=== PATIENT | female | born 1945 | race Caucasian/White ===

== ENCOUNTER 2019-04-27 08:07 | Inpatient (IN) | payer MEDICARE, OTHER ==
[~2019-04-27] VITALS: Ht 160 cm; Wt 67.1 kg
[~2019-04-27 08:07] MED LIST: FLUO40CA8 PO
[2019-04-27] MEDS ORDERED: DILTIAZEM HCL 25 MG IV IV ONE (08:30)
[2019-04-27] MEDS ORDERED: HEPARIN SODIUM, PORCINE 5000 UNITS/1 ML VIAL IV ONE ×2 (08:30→09:00)
[2019-04-27] MEDS ORDERED: HEPARIN INFUSION/D5W 500 ML IV PRN (08:30)
[2019-04-27] MEDS ORDERED: HEPARIN SODIUM, PORCINE 5000 UNITS/1 ML VIAL ONE (08:36)
[2019-04-27] MEDS ORDERED: DILTIAZEM HCL 25 MG IV ONE (08:37)
[2019-04-27 08:39] LABS: BASOPHILS # (AUTO) 0.1 /CMM (0.0-0.2); BASOPHILS % (AUTO) 0.8 % (0.0-2.0); EOSINOPHILS % (AUTO) 0.8 % (0.0-6.0); HEMATOCRIT 37 % (33-45); HEMOGLOBIN 12.3 g/dL (11.5-14.8); LYMPHOCYTES # (AUTO) 1.7 /CMM (0.8-4.8); LYMPHOCYTES % (AUTO) 16.3 % (20.0-44.0); MEAN CORPUSCULAR HGB CONC 33 g/dl (31.0-36.0); MEAN CORPUSCULAR VOLUME 84 fL (82-100); MONOCYTES # (AUTO) 1.1 /CMM (0.1-1.30); MONOCYTES % (AUTO) 10.6 % (2.0-12.0); NEUTROPHILS # (AUTO) 7.4 /CMM (1.8-8.9); NEUTROPHILS % (AUTO) 71.5 % (43.0-81.0); PLATELET COUNT (AUTO) 177 /CMM (150-450); RED BLOOD CELL COUNT(AUTO) 4.43 MIL/uL (4.0-5.2); WHITE BLOOD COUNT (AUTO) 10.4 K/uL (4.3-11.0)
--- NOTE | 2019-04-27 08:43 | NUR ---
CALLED FOR TELE BED
[2019-04-27 08:46] LABS: CALCIUM, SERUM 10.2 mg/dL (8.5-10.1); CARBON DIOXIDE 21 mmol/L (21-32); CHLORIDE 106 mmol/L (98-107); CREATININE 1.2 mg/dL (0.6-1.3); GLUCOSE 127 mg/dL (74-106); POTASSIUM 3.5 mmol/L (3.5-5.1); SODIUM SERUM 141 mmol/L (136-145); UREA NITROGEN, BLOOD 13 mg/dL (7-18)
[2019-04-27 08:58] LABS: B-TYPE NATRIURETIC PEPTIDE 8670 PG/ML (0-125)
[2019-04-27] MEDS ORDERED: BUPR150T10 PO (09:03)
[2019-04-27] MEDS ORDERED: LIPA1CAP21 PO ×2 (09:03)
[2019-04-27] MEDS ORDERED: LOSA50TA39 PO (09:03)
[2019-04-27] MEDS ORDERED: DIPH1TAB28 PO (09:03)
[2019-04-27] MEDS ORDERED: THYR60TA2 PO (09:03)
[2019-04-27] MEDS ORDERED: METO50TA16 PO (09:03)
[2019-04-27] MEDS: HEPARIN INFUSION/D5W 500 ML IV PRN ×2 (09:14→15:54)
--- NOTE | 2019-04-27 09:17 | NUR ---
PT STARTED ON 1250U/HR HEPARIN GTT VIA L HAND IV SITE G 20. CONTINUE TO MONITOR
[2019-04-27] MEDS ORDERED: DILTIAZEM HCL 30 MG TABLET PO ONE (10:00)
--- NOTE | 2019-04-27 10:00 | NUR ---
GOT BED 106
[2019-04-27] MEDS ORDERED: DILTIAZEM HCL 30 MG TABLET ONE (10:01)
--- NOTE | 2019-04-27 11:09 | NUR ---
RN NOTES PT TRANSFERRED TO ROOM 106, VIA ACLS PROTOCAL .
[2019-04-27 11:15] VITALS: BP 120/97
--- NOTE | 2019-04-27 11:59 | NUR ---
PIPE FITTINGS MOLDER ADMITTING NOTES PATIENT ADMITTED TO UNIT AT 1110 VIA [facility]. PT WALKED FROM [facility] TO BED. A/O X4. ABLE TO MAKE NEEDS KNOWN, NO C/O PAIN, SOB OR DISCOMFORTS AT THIS TIME. PT ORIENTED TO UNIT, STAFF AND ROOM. PT WITH DIAGNOSIS OF AFIB WITH RVR. PT ON ROOM AIR, TOLERATING WELL WITH NO ACUTE RESPIRATORY DISTRESS NOTED. V/S TAKEN, AND RECORDED. PHYSICAL ASSESSMENT DONE. PT WITH INTACT SKIN WITH IV ACCESS ON LAC G#20 INTACT AND PATENT, HEPARIN DRIP AT 25ML/HR ( 1250 U/H) INFUSING , NO S/S OF INFILTRATIONS NOTED. PT PLACED ON TELEMONITORING WITH CURRENT READING OF AFIB WITH RVR, HR 90-115., NO C/O CARDIAC DISTRESS VOICED AT THIS TIME. LUNGS CLEAR ON AUSCULTATION BILATERALLY. ABDOMEN SOFT , NON-TENDER AND NON DISTENDED WITH + BOWEL SOUNDS ON FOUR QUADRANTS. SAFETY MEASURES INITIATED. BED PLACED ON LOW LOCKED POSITION WITH SR UP X2. CALL LIGHT PLACED WITHIN EASY REACH OF PT. WILL CONTINUE TO MONITOR PT ACCORDINGLY.
[2019-04-27] MEDS ORDERED: MAG HYDROX/AL HYDROX/SIMETH 30 ML UDC PO PRN (12:30)
[2019-04-27] MEDS ORDERED: ONDANSETRON HCL/PF 4 MG/2 ML VIAL IVP PRN (12:30)
[2019-04-27] MEDS ORDERED: Z GUARD REMEDY 2 OZ OINT TP PRN (12:30)
[2019-04-27] MEDS ORDERED: HYDROCODONE/APAP 5/325MG 1 EACH TABLET PO PRN (12:30)
[2019-04-27] MEDS ORDERED: DIPHENOXYLATE HCL/ATROP SULF 1 UDTAB TABLET PO PRN (13:30)
[2019-04-27] MEDS ORDERED: LIPASE/PROTEASE/AMYLASE 1 EACH CAPSULE.DR PO ONE (13:48)
[2019-04-27] MEDS ORDERED: AMYLASE/LIPASE/PROTEASE 1 CAP.EC PO ONE (13:50)
[2019-04-27 16:00] VITALS: BP 125/89
--- NOTE | 2019-04-27 16:00 | NUR ---
RN NOTES PT NOTED WITH PTT OF 74.9. HEPARIN DRIP DECREASED 2 UNITS/KG PER PROTOCOL. DRIP RATE DECREASED FROM 25 ML/HR TO 22 ML/HR. PTT WILL BE DRAWN IN 6 HOURS. ORDER ALREADY MADE. DR JIMENEZ MADE AWARE AND SIGNED THE PAPER. WILL CONTINUE TO MONITOR.
[2019-04-27] MEDS: ACETAMINOPHEN 325 MG TABLET PO PRN (16:14)
--- NOTE | 2019-04-27 16:16 | NUR ---
RN NOTES PATIENT C/O OF HEADACHE AND REQUESTED TYLENOL. PRN TYLENOL 650MG PO GIVEN ORDERED. WILL CONTINUE TO MONITOR.
[2019-04-27] MEDS: LOSARTAN POTASSIUM 50 MG TABLET PO SCH (17:25)
[2019-04-27] MEDS: LIPASE/PROTEASE/AMYLASE 1 EACH CAPSULE.DR PO SCH (17:26)
[2019-04-27] MEDS: buPROPion SR 150 MG TABLET.ER PO SCH (17:26)
[2019-04-27] MEDS: METOPROLOL TARTRATE 50 MG TABLET PO SCH (17:26)
[2019-04-27] MEDS ORDERED: LIPASE PO SCH (17:30)
[2019-04-27] MEDS ORDERED: AMYLASE PO SCH (17:30)
[2019-04-27] MEDS ORDERED: [UNRECOGNIZED DRUG - OTHER] PO SCH (17:30)
[2019-04-27] MEDS ORDERED: PROTEASE PO SCH (17:30)
[2019-04-27] MEDS ORDERED: AMYLASE/LIPASE/PROTEASE 1 CAP.EC PO SCH (18:00)
--- NOTE | 2019-04-27 18:44 | NUR ---
RN CLOSING NOTES PATIENT RESTING IN BED, A/A/OX4. ON TELE MONITOR, AFIB, HR 100-120. ON NC 2L AT THIS TIME. NO SIGNS OF CARDIAC AND RESPIRATORY DISTRESS OR DISCOMFORT AT THIS TIME. BREATHING EVEN AND UNLABORED. IV ACCESS IN L HAND 20G PATENT, INTACT, AND FLUSHED WELL. NO SIGNS OF REDNESS OR INFILTRATION NOTED. HEPARIN DRIP RUNNING AT 22 ML/HR. PT IS AMBULATORY AND ALL NEEDS MET. BED IN LOW LOCKED POSITION WITH SIDE RAILS UP X2. CALL LIGHT WITHIN THE REACH. WILL ENDORSE TO THE FIRE COORDINATOR NURSE FOR LATHA.
--- NOTE | 2019-04-27 19:00 | NUR ---
TRUCK SERVICE TECHNICIAN OPENING NOTES RECEIVED BEDSIDE REPORT FROM AM RN. PATIENT RESTING IN BED, ALERT, A/OX4. ON TELE MONITOR, AFIB WITH HR 100-120S. ON NC 2L OXYGEN VIA NC, NO SOB NOTED. DENIES ANY PAIN AT THE MOMENT. NO SIGNS OF CARDIAC AND RESPIRATORY DISTRESS OR DISCOMFORT NOTED. BREATHING EVEN AND UNLABORED. IV ACCESS IN L HAND 20G PATENT, INTACT, AND FLUSHING. NO SIGNS OF REDNESS OR INFILTRATION NOTED. HEPARIN DRIP RUNNING AT 22ML/HR, PER REPORT RECENT APTT IS 74.9. PER REPORT PT IS AMBULATORY WITH FWW. SAFETY MEASURES IN PLACE; BED IN LOW AND LOCKED POSITION, SIDE RAILS UP X2, HOB ELEVATED, CALL LIGHT WITHIN THE REACH. WILL CONT TO MONITOR PT CLOSELY.
[2019-04-27 20:00] VITALS: BP 99/70
--- NOTE | 2019-04-27 20:50 | NUR ---
BOARDING HOUSE COOK NOTES PATIENT MOST RECENT APTT AT 2049 IS 57.9. HEPARIN DRIP NO CHANGE PER PROTOCOL. DRIP RATE REMAINS 22 ML/HR. PTT WILL BE DRAWN IN THE NEXT 24 HOURS. WILL ORDER APTT LAB. WILL CONTINUE TO MONITOR PATIENT.
[2019-04-28] VITALS: BP 110/72
[2019-04-28 04:00] VITALS: BP 123/88
[2019-04-28] MEDS: HEPARIN INFUSION/D5W 500 ML IV PRN (06:46)
--- NOTE | 2019-04-28 07:10 | NUR ---
MOBILE DEVICE ENGINEER CLOSING NOTES PATIENT RESTING IN BED, ALERT, A/OX4. ON TELE MONITOR, AFIB WITH HR 100-120S. ON NC 2L OXYGEN VIA NC, NO SOB NOTED. DENIES ANY PAIN AT THE MOMENT. NO SIGNS OF CARDIAC AND RESPIRATORY DISTRESS OR DISCOMFORT NOTED. BREATHING EVEN AND UNLABORED. IV ACCESS IN L HAND 20G PATENT, INTACT, AND FLUSHING. NO SIGNS OF REDNESS OR INFILTRATION NOTED. HEPARIN DRIP RUNNING AT 22ML/HR, STAT APTT ORDERED FOR AM LAB AND TIMED APTT ORDERED AT 2049. SAFETY MEASURES MAINTAINED; BED IN LOW AND LOCKED POSITION, SIDE RAILS UP X2, HOB ELEVATED, CALL LIGHT WITHIN THE REACH. ENDORSED TO AM RN FOR LATHA.
--- NOTE | 2019-04-28 07:30 | NUR ---
RECEIVED REPORT FROM [facility] SHIFT NURSE KILEY WHO ENDORSED THAT DR. JACKMAN AGREED TO CONTINUE HEPARIN DRIP FROM ER UPON ADMISSION TO TELEMETRY. RECEIVED PATIENT ON HEPARIN DRIP 1,100 UNITS/HR INFUSING ON LEFT HAND.
--- NOTE | 2019-04-28 07:35 | NUR ---
ELECTROMECHANICAL INSPECTOR OPENING NOTES RECEIVED REPORT FROM [facility] SHIFT NURSE. PATIENT LAYING IN BED, AWAKE AND ORIENTED X 4. DENIES ANY PAIN OR SOB, RESPIRATIONS ARE EASY AND UNLABORED, NO SIGNS OF RESPIRATORY DISTRESS NOTED. IV SITE ON LEFT HAND G20 INTACT, NO SIGNS OF INFILTRATION NOTED. BED IS IN LOW POSITION, LOCKED, CALL LIGHT WITHIN REACH. DISCUSSED PLAN OF CARE WITH PATIENT.
[2019-04-28 07:46] LABS: BASOPHILS # (AUTO) 0.1 /CMM (0.0-0.2); BASOPHILS % (AUTO) 0.9 % (0.0-2.0); HEMATOCRIT 35 % (33-45); HEMOGLOBIN 11.5 g/dL (11.5-14.8); LYMPHOCYTES # (AUTO) 2.3 /CMM (0.8-4.8); LYMPHOCYTES % (AUTO) 33.6 % (20.0-44.0); MEAN CORPUSCULAR HGB CONC 33 g/dl (31.0-36.0); MEAN CORPUSCULAR VOLUME 83 fL (82-100); MONOCYTES # (AUTO) 0.9 /CMM (0.1-1.30); MONOCYTES % (AUTO) 12.8 % (2.0-12.0); NEUTROPHILS # (AUTO) 3.4 /CMM (1.8-8.9); NEUTROPHILS % (AUTO) 50.7 % (43.0-81.0); PLATELET COUNT (AUTO) 147 /CMM (150-450); RED BLOOD CELL COUNT(AUTO) 4.18 MIL/uL (4.0-5.2); WHITE BLOOD COUNT (AUTO) 6.7 K/uL (4.3-11.0)
[2019-04-28 07:52] LABS: ALANINE AMINOTRANSFERASE 28 U/L (12-78); ALBUMIN 2.9 g/dL (3.4-5.0); ALKALINE PHOSPHATASE 174 U/L (46-116); ASPARTATE AMINOTRANSFERASE 21 U/L (15-37); CALCIUM, SERUM 9.8 mg/dL (8.5-10.1); CARBON DIOXIDE 24 mmol/L (21-32); CHLORIDE 106 mmol/L (98-107); CREATININE 1.1 mg/dL (0.6-1.3); GLUCOSE 96 mg/dL (74-106); MAGNESIUM 1.6 mg/dL (1.8-2.4); POTASSIUM 3.3 mmol/L (3.5-5.1); SODIUM SERUM 140 mmol/L (136-145); TOTAL PROTEIN, SERUM 6.5 g/dL (6.4-8.2); UREA NITROGEN, BLOOD 12 mg/dL (7-18)
[2019-04-28 07:54] LABS: CHOLESTEROL 115 mg/dL (<200); HDL CHOLESTEROL 35 mg/dL (40-60); LDL 71 mg/dL (0-99); TRIGLYCERIDES 85 mg/dL (30-150)
[2019-04-28 08:00] VITALS: BP 119/73
[2019-04-28] MEDS: THYROID 30 MG TABLET PO SCH (08:06)
[2019-04-28] MEDS: LIPASE/PROTEASE/AMYLASE 1 EACH CAPSULE.DR PO SCH ×3 (08:37→18:11)
[2019-04-28] MEDS: buPROPion SR 150 MG TABLET.ER PO SCH ×2 (09:06→17:20)
[2019-04-28] MEDS: LOSARTAN POTASSIUM 50 MG TABLET PO SCH ×2 (09:07→17:20)
[2019-04-28] MEDS: METOPROLOL TARTRATE 50 MG TABLET PO SCH ×2 (09:08→17:20)
[2019-04-28] MEDS ORDERED: POTASSIUM CHLORIDE 20 MEQ TAB.PRT.SR PO SCH (11:00)
[2019-04-28] MEDS: Magnesium 1GM/D5W 100ML PREMIX 100 ML IV SCH ×2 (11:47→19:52)
[2019-04-28 12:00] VITALS: BP 116/86
--- NOTE | 2019-04-28 12:07 | NUR ---
PER DR. CYR'S ORDERS CONTINUED HEPARIN DRIP ORDER 1,100UNITS/HR WITH AMIODARONE DRIP.
[2019-04-28] MEDS ORDERED: AMIODARONE 150 MG in IV D5W 100 ML IV ONE (13:00)
[2019-04-28] MEDS: AMIODARONE 900 MG in IV D5W 500 ML IV PRN (13:45)
[2019-04-28] MEDS ORDERED: IOHEXOL-350 100 ML VIAL IV ONE (15:58)
[2019-04-28 16:00] VITALS: BP_SYST 110; BP_SYST 113; BP_DIAS 82; BP_DIAS 84
--- NOTE | 2019-04-28 16:00 | NUR ---
RN NOTE: PATIENT WAS BROUGHT TO RADIOLOGY DEPARTMENT FOR CT PULMONARY ANGIOGRAM VIA ACLS PROTOCOL. PATIENT TOLERATED THE PROCEDURE.
--- NOTE | 2019-04-28 19:30 | NUR ---
ENDORSED REPORT TO [facility] SHIFT NURSE. PATIENT WAS CONTINUOUSLY RECEIVING LEFT HAND IV SITE HEPARIN DRIP, RIGHT HAND RECEIVING AMIODARONE DRIP. PATIENT ON VP DELIVERY STILL AFIB HEART RATE 90. BED IS IN LOW POSITION, LOCKED, CALL LIGHT WITHIN REACH.
--- NOTE | 2019-04-28 19:45 | NUR ---
RN NOTE RECEIVED PATIENT IN BED, ALERT/ORIENTED X 4, NO PAIN OR DISCOMFORT NOTED, WITH ONGOING AMIODARONE DRIP, CHANGED RATE TO 0.5MG/HR PER HOSPITAL PROTOCOL, CHARGE NURSE IS AWARE, A FIB, HEART RATE IS 104 BEATS/MIN Addendum: 04/29/19 at 0059 by RODGER ACUÑA RN ONGOING HEPARIN DRIPS AT 1100 UNITS/HR, NO S/S OF BLEEDING NOTED
[2019-04-28 20:00] VITALS: BP_SYST 105; BP_SYST 148; BP_DIAS 89; BP_DIAS 97
--- NOTE | 2019-04-28 22:45 | NUR ---
RN NOTE PATIENT COMPLAINED OF SOB UPON WALKING AND CHANGING POSITION, SPO2 98%, NOTIFIED DOCTOR RHINA NEW ORDER OF BREATHING TREATMENT ALBUTEROL IS GIVEN AND CARRIED OUT, ORDER TRANSCRIBED AND READ BACK
[2019-04-28] MEDS: ALBUTEROL FS 2.5 MG/3 ML VIAL.NEB NEB PRN (23:22)
[2019-04-29] VITALS: BP_SYST 111; BP_SYST 97; BP_DIAS 55; BP_DIAS 78
[2019-04-29] MEDS: HEPARIN INFUSION/D5W 500 ML IV PRN ×2 (00:31→06:31)
--- NOTE | 2019-04-29 00:31 | NUR ---
RN NOTE NOTICED THAT ONGOING HEPARIN IV BAG WAS NOT SCANNED, NOTIFIED ELECTRONICS LEAD LACY REGARDING FINDING, PER LACY ELECTRONICS LEAD OK TO SCAN, CHARGE NURSE TOMI IS AWARE
--- NOTE | 2019-04-29 01:18 | NUR ---
RN NOTE NO SHORTNESS OF BREATH AT THIS TIME, PER PATIENT "BREATHING TREATMENT HELPED A LOT"
--- NOTE | 2019-04-29 03:52 | NUR ---
RN NOTE PATIENT COMPLAINED OF HARD TIME BREATHING, PER PATIENT "I FEEL WORRIED", VITAL SIGNS: BP 138/88, SPO2 96%, RESPIRATIONS 18 BREATHS/MIN, HEART RATE 105 BEATS/MIN, TEMPERATURE 97.6F, NOTIFIED DR LANTIGUA, DR LANTIGUA GAVE AN ORDER XANAX 0.25MG PO TIMES 1, CHEST X-RAY IN THE AM, ORDERS WERE TRANSCRIBED AND READ BACK
[2019-04-29 04:00] VITALS: BP 138/88
[2019-04-29] MEDS ORDERED: ALPRAZOLAM 0.25 MG TABLET PO ONE (04:03)
[2019-04-29] MEDS: ALBUTEROL FS 2.5 MG/3 ML VIAL.NEB NEB PRN (04:16)
[2019-04-29 06:38] LABS: CALCIUM, SERUM 10.8 mg/dL (8.5-10.1); CARBON DIOXIDE 20 mmol/L (21-32); CHLORIDE 102 mmol/L (98-107); CREATININE 1.3 mg/dL (0.6-1.3); GLUCOSE 114 mg/dL (74-106); MAGNESIUM 2.6 mg/dL (1.8-2.4); POTASSIUM 3.5 mmol/L (3.5-5.1); SODIUM SERUM 136 mmol/L (136-145); UREA NITROGEN, BLOOD 16 mg/dL (7-18)
--- NOTE | 2019-04-29 06:39 | NUR ---
RN NOTE PATIENT IS STABLE, NO SOB AT THIS TIME, AWAKE, NO RESPIRATORY DISTRESS NOTED, NO PAIN OR DISCOMFORT NOTED, ONGOING HEPARIN DRIPS,NO S/S OF BLEEDING NOTED, ONGOING AMIODARONE DRIPS, AFIB 106, AWAITING APTT RESULTS, WILL ENDORSE TO AM SHIFT TO CONTINUE CARE
[2019-04-29 06:44] LABS: BASOPHILS # (AUTO) 0.1 /CMM (0.0-0.2); BASOPHILS % (AUTO) 0.9 % (0.0-2.0); EOSINOPHILS % (AUTO) 1.3 % (0.0-6.0); HEMATOCRIT 39 % (33-45); HEMOGLOBIN 12.7 g/dL (11.5-14.8); LYMPHOCYTES # (AUTO) 2.5 /CMM (0.8-4.8); LYMPHOCYTES % (AUTO) 26.1 % (20.0-44.0); MEAN CORPUSCULAR HGB CONC 33 g/dl (31.0-36.0); MEAN CORPUSCULAR VOLUME 84 fL (82-100); MONOCYTES # (AUTO) 1.2 /CMM (0.1-1.30); MONOCYTES % (AUTO) 12.3 % (2.0-12.0); NEUTROPHILS # (AUTO) 5.8 /CMM (1.8-8.9); NEUTROPHILS % (AUTO) 59.4 % (43.0-81.0); PLATELET COUNT (AUTO) 163 /CMM (150-450); RED BLOOD CELL COUNT(AUTO) 4.61 MIL/uL (4.0-5.2); WHITE BLOOD COUNT (AUTO) 9.7 K/uL (4.3-11.0)
--- NOTE | 2019-04-29 07:15 | NUR ---
RN INITIAL NOTES PATIENT IN BED, AWAKE AND ALERT. ON NC 3L SATING WELL AT 97%. ON TELE MONITOR, AFIB AT 100s. AWARE. HAS A BEDSIDE COMMODE. HAS LEFT HAND #20 WITH HEPARIN DRIP, PTT 51.1 THIS MORNING. NO CHANGE IN INFUSION. RIGHT AC #20 WITH AMIODARONE RUNNING AT 0.5MG. AND RIGHT HAND #22 SL. BED ON LOWEST POSITION. PATIENT CAN AMBULATE, STEADY GAIT. CALL LIGHT WITHIN REACH. WILL CONT TO MONITOR
[2019-04-29 08:00] VITALS: BP 136/88
--- NOTE | 2019-04-29 08:00 | NUR ---
RN NOTE PATIENT CALLED AND HER RIGHT AC IV WAS DISCONNECTED TO HER ARM. NO BLEEDING NOTED. IV INTACT. CONNECTED AMIODARONE TO HER RIGHT HAND, BUT RIGHT HAND SEEMS TO LOOK SWOLLEN. WHILE AMIO IS RUNNING PATIENT FELT A LITTLE BURNING SENSATION. RIGHT HAND IV DC'D AND INSERTED ANOTHER SITE ON HER RIGHT FOREARM #22. AMIODARONE RUNNING AT THE SAME RATE, 0.5MG AND HEPARIN ON LEFT HAND #20.
[2019-04-29] MEDS: LIPASE/PROTEASE/AMYLASE 1 EACH CAPSULE.DR PO SCH ×3 (08:21→17:16)
[2019-04-29] MEDS: METOPROLOL TARTRATE 50 MG TABLET PO SCH (08:21)
[2019-04-29] MEDS: buPROPion SR 150 MG TABLET.ER PO SCH ×2 (08:21→17:16)
[2019-04-29] MEDS: THYROID 30 MG TABLET PO SCH (08:21)
[2019-04-29] MEDS: LOSARTAN POTASSIUM 50 MG TABLET PO SCH ×2 (08:21→17:16)
[2019-04-29] MEDS ORDERED: LEVALBUTEROL HCL NEB 1.25 MG/0.5 ML VIAL.NEB IH PRN (08:30)
[2019-04-29] MEDS: POTASSIUM CHLORIDE 20 MEQ TAB.PRT.SR PO SCH ×3 (09:48→11:17)
[2019-04-29] MEDS: FUROSEMIDE 40 MG/4 ML VIAL IV SCH ×2 (09:49→12:45)
--- NOTE | 2019-04-29 09:51 | NUR ---
RN NOTE JACKI DUR WAS ADMINISTERED EXACTLY AT 0900. SCANNED MEDICATION, PROBABLY FORGOT TO SAVE EMAR. SCANNED MEDICATION AGAIN AT THIS TIME AND MADE SURE TO SAVE IT.
[2019-04-29] MEDS: methylPREDNISolone SOD SUCC 125 MG/2ML VIAL IV SCH ×2 (10:30→17:15)
[2019-04-29 12:00] VITALS: BP 114/82
--- NOTE | 2019-04-29 12:00 | NUR ---
RN NOTES PATIENT'S AMIO BAG ALMOST FINISHED. PAGED DR CYR FOR NEW ORDERS. PER MD, CONTINUE AMIODARONE DRIP. PATIENT NPO AFTER MIDNIGHT TONIGHT AND TO CONFIRM AM CARDIOVERSION TIME BEFORE 11 AM. CALLED PHARMACY TO GET ANOTHER BAG OF AMIO, CHANGED DIET TO NPO TOMORROW FOR BREAKFAST
[2019-04-29] MEDS: AMIODARONE 900 MG in IV D5W 500 ML IV PRN (13:23)
[2019-04-29] MEDS: LEVALBUTEROL HCL NEB 1.25 MG/0.5 ML VIAL.NEB IH SCH ×2 (15:59→23:33)
[2019-04-29] MEDS: IPRATROPIUM NEB FS 0.5 MG/2.5 ML AMPUL.NEB NEB SCH ×2 (15:59→23:33)
[2019-04-29 16:00] VITALS: BP 126/92
--- NOTE | 2019-04-29 16:43 | NUR ---
NURSING BELLY DANCER CONNOR CONFIRMED TIME FOR CARDIOVERSION WITH ANAESTHESIA IN AM BY 10AM,PATIENT NEED TO BE TRANSFER TO ICU BY 0800 AND WILL GIVE ICU BED IN AM,DR. CYR MADE AWARE.
--- NOTE | 2019-04-29 17:11 | NUR ---
RN NOTES PER MD, PATIENT WILL BE TRANSFERRED TO ICU AT 0800 FOR CARDIOVERSION. ANESTHESIA BY 1000. SEWAGE RETICULATION DRAFTING OFFICER IS AWARE WITH THE ROOM CHANGE TOMORROW WELL CN
--- NOTE | 2019-04-29 18:45 | NUR ---
RN CLOSING NOTES PATIENT IN BED, AWAKE AND ALERT. WATCHING TV. NO COMPLAINS OF ANY PAIN NOR SOB. STILL AFIB ON THE MONITOR, NPO AFTER MIDNIGHT TONIGHT WILL HAVE CARDIOVERSION TOMORROW IN THE ICU. AMBULATORY WITH STEADY GAIT. HAS LEFT HAND #20 WITH HEPARIN RUNNING AND RIGHT FA #22 WITH AMIODARONE RUNNING. BED IN LOWEST POSITION. CALL LIGHT WITHIN REACH. WILL ENDORSE TO NOC SHIFT FOR LATHA
--- NOTE | 2019-04-29 19:00 | NUR ---
RECEIVED PATIENT AWAKE,ALERT,CONVERSES,COHERENT AND APPROPRIATE,NOT IN ANY DISTRESS, DENIES ANY CHEST PAIN. WITH O2 VIA NASAL CANNULA 2L/MIN.ON AMIODARONE DRIP @ 0.5 MG/MIN AND HEPARIN DRIP @ 1100 units/hr. PATIENT AMBULATORY TO THE BATHROOM,TOLERATING WELL.WILL CLOSELY MONITOR FOR ANY S/S OF BLEEDING.COMFORT CARE DONE,NEEDS ATTENDED. PATIENT INSTRUCTED TO BE NPO POST MIDNIGHT ,FOR CARDIOVERSION IN AM.
[2019-04-29 20:00] VITALS: BP 103/71
--- NOTE | 2019-04-29 22:00 | NUR ---
REMAINS STABLE,STILL ON AFIB. WITH RATE 90'S -120'S BUT HIGH RATE NOT SUSTAINING,DENIES ANY PAIN NOR SOB.NEEDS ATTENDED
[2019-04-29] MEDS ORDERED: ACETYLCYSTEINE 10% 3,000 MG/30 ML VIAL PO SCH (23:30)
[2019-04-30] VITALS (7 sets, daily range): BP systolic 101–133; BP diastolic 65–95
--- NOTE | 2019-04-30 | NUR ---
AWAKE,ALERT,STILL ON AFIB BUT RATE CONTROLLED 80'S-90'S HEART RATE. INSTRUCTED PATIENT TO BE NPO STARTING NOW TILL AFTER CARDIOVERSION,PATIENT UNDERSTANDS.
[2019-04-30] MEDS: ZOLPIDEM TARTRATE 5 MG TABLET PO PRN ×2 (00:07→23:24)
[2019-04-30] MEDS: methylPREDNISolone SOD SUCC 125 MG/2ML VIAL IV SCH ×3 (02:17→17:31)
--- NOTE | 2019-04-30 04:00 | NUR ---
REMIANS STABLE, NOT IN ANY DISTRESS,ASLEEP. 0600 AWAKE,STABLE.NOT IN ANY DISTRESS. 0630 CHEST X RAY DONE. 0700 REPORT GIVEN TO DAYSHIFT SHIFT.CONSENT FOR CARDIOVERSION SIGNED BY PATIENT WITNESSED BY ME.
[2019-04-30] MEDS: HEPARIN INFUSION/D5W 500 ML IV PRN (04:03)
[2019-04-30 06:36] LABS: BASOPHILS % (AUTO) 0.1 % (0.0-2.0); HEMATOCRIT 37 % (33-45); HEMOGLOBIN 12.3 g/dL (11.5-14.8); LYMPHOCYTES % (AUTO) 13.8 % (20.0-44.0); MEAN CORPUSCULAR HGB CONC 33 g/dl (31.0-36.0); MEAN CORPUSCULAR VOLUME 84 fL (82-100); MONOCYTES # (AUTO) 0.2 /CMM (0.1-1.30); MONOCYTES % (AUTO) 2.6 % (2.0-12.0); NEUTROPHILS # (AUTO) 6.1 /CMM (1.8-8.9); NEUTROPHILS % (AUTO) 83.5 % (43.0-81.0); PLATELET COUNT (AUTO) 148 /CMM (150-450); RED BLOOD CELL COUNT(AUTO) 4.46 MIL/uL (4.0-5.2); WHITE BLOOD COUNT (AUTO) 7.3 K/uL (4.3-11.0)
[2019-04-30 07:03] LABS: ALANINE AMINOTRANSFERASE 29 U/L (12-78); ALBUMIN 3.3 g/dL (3.4-5.0); ALKALINE PHOSPHATASE 171 U/L (46-116); ASPARTATE AMINOTRANSFERASE 15 U/L (15-37); BILIRUBIN,TOTAL 0.9 mg/dL (0.2-1.0); CALCIUM, SERUM 10.4 mg/dL (8.5-10.1); CHLORIDE 99 mmol/L (98-107); CREATININE 1.6 mg/dL (0.6-1.3); GLUCOSE 196 mg/dL (74-106); MAGNESIUM 1.7 mg/dL (1.8-2.4); PHOSPHORUS 4.4 mg/dL (2.5-4.9); POTASSIUM 3.3 mmol/L (3.5-5.1); SODIUM SERUM 134 mmol/L (136-145); TOTAL PROTEIN, SERUM 6.9 g/dL (6.4-8.2); UREA NITROGEN, BLOOD 22 mg/dL (7-18)
[2019-04-30 07:18] LABS: CARBON DIOXIDE 19 mmol/L (21-32)
[2019-04-30] MEDS ORDERED: ACETYLCYSTEINE 10% SOLN 400 MG/4 ML VIAL PO SCH (07:34)
[2019-04-30] MEDS: LEVALBUTEROL HCL NEB 1.25 MG/0.5 ML VIAL.NEB IH SCH ×3 (07:35→23:00)
[2019-04-30] MEDS: IPRATROPIUM NEB FS 0.5 MG/2.5 ML AMPUL.NEB NEB SCH ×3 (07:35→23:00)
--- NOTE | 2019-04-30 07:37 | NUR ---
RN BRIANNA NOTES RECEIVED BEDSIDE REPORT. PATIENT ASLEEP ABLE TO AROUSE WITH VOICE AND TOUCH. A/O X4. NO SIGNS OR SYMPTOMS OF RESPIRATORY SATURATING WELL ON 3 LTRS NASAL CANNULA. DISTRESS OR ACUTE PAIN. NPO FOR CARDIOVERSION AND WILL BE TRANSFERRED TO ROOM 251 ICU FOR PROCEDURE @ 0800. L HAND # 20 WITH HEPARIN DRIP RUNNING @ 1100 UNITS AND RIGHT HAND #20 AMIODARONE 0.5 MG/HR. SKIN INTACT AMBULATORY IN ROOM WITH BRP. SAFETY PRECAUTIONS IN PLACE BED IN LOW POSITION CALL LIGHT WITHIN REACH.
--- NOTE | 2019-04-30 07:42 | NUR ---
RN OPENING NOTES RECEIVED PATIENT RESTING IN BED, AO X3. SHE HAS 3L OF OXYGEN VIA NC, IS NOT IN RESP. DISTRESS OR SOB. SHE HAS A 20G ON LEFT HAND RUNNING HEPARIN DRIP. SHE HAS A 22G SL ON RIGHT HAND. SHE IS CURRENTLY ON NPA, SAFETY MEASURES HAVE BEEN IMPLEMENTED, BED IN LOWEST AND LOCKED POSITION, WILL CONTINUE TO MONITOR
--- NOTE | 2019-04-30 07:47 | NUR ---
TRANSFERRING PATIENT TO ICU VIA ACLS PROTOCOL
--- NOTE | 2019-04-30 08:17 | NUR ---
REPORT GIVEN TO GINETTE ESCALANTE
--- NOTE | 2019-04-30 08:30 | NUR ---
received pt from BRIANNA for cardioversion, a/o x4, Afib controlled, v/s stable, no pain.
[2019-04-30] MEDS: LOSARTAN POTASSIUM 50 MG TABLET PO SCH ×2 (08:41→17:00)
[2019-04-30] MEDS: LIPASE/PROTEASE/AMYLASE 1 EACH CAPSULE.DR PO SCH ×3 (08:41→17:31)
--- NOTE | 2019-04-30 08:55 | NUR ---
anesthesia and Dr Reyes at the bedside for cardioversion.
--- NOTE | 2019-04-30 09:00 | NUR ---
Successful cardioversion, pt converted to NSR.
--- NOTE | 2019-04-30 09:16 | NUR ---
pt is awake, following commands, v/s stable, no pain.
[2019-04-30] MEDS ORDERED: POTASSIUM CHLORIDE 10 MEQ TABLET.SA PO ONE (09:30)
[2019-04-30] MEDS: POTASSIUM CHLORIDE 20 MEQ TAB.PRT.SR PO SCH ×3 (09:34→11:37)
[2019-04-30] MEDS: Magnesium 1GM/D5W 100ML PREMIX 100 ML IV SCH ×2 (09:34→10:40)
[2019-04-30] MEDS: DRONEDARONE HYDROCHLORIDE 400 MG TABLET PO SCH ×2 (09:34→17:27)
[2019-04-30] MEDS: buPROPion SR 150 MG TABLET.ER PO SCH ×2 (09:38→17:26)
[2019-04-30] MEDS: THYROID 30 MG TABLET PO SCH (09:38)
--- NOTE | 2019-04-30 10:20 | NUR ---
pt transferred to [facility], ACLS followed, v/s stable, no pain.
--- NOTE | 2019-04-30 10:25 | NUR ---
PATIENT RETURNED FROM PROCEDURE VIA BED WITH ACLS PROTOCOL
[2019-04-30] MEDS: ACETYLCYSTEINE 10% SOLN 400 MG/4 ML VIAL PO SCH ×2 (12:09→17:25)
[2019-04-30] MEDS: APIXABAN 5 MG TABLET PO SCH ×2 (12:10→17:26)
[2019-04-30] MEDS: ACETAMINOPHEN 325 MG TABLET PO PRN ×2 (16:21→23:24)
--- NOTE | 2019-04-30 17:30 | NUR ---
PATIENT C/O LEFT BREAST PAIN WILL CONT TO MONITOR FOR NUMBNESS SOB DEEPER PAIN
--- NOTE | 2019-04-30 18:00 | NUR ---
REASSESSED PAIN PATIENT STATES IT HAS RESOLVED. WILL CONT TO MONITOR FOR ANY CHANGES
--- NOTE | 2019-04-30 18:20 | NUR ---
RN BRIANNA NOTES NO SIGNIFICANT CHANGES THROUGHOUT THE SHIFT. PATIENT CONVERTED TO SINUS WITH OCCASIONAL PAC. NO SIGNS OR SYMPTOMS OF RESPIRATORY DISTRESS SATURATING WELL ON ROOM AIR. >96%. APPETITE FAIR NO N/V/D NOTED. SKIN INTACT. ELECTROLYTES REPLACED ORDERED. SAFETY PRECAUTIONS IN PLACE CALL LIGHT WITHIN REACH WILL ENDORSE TO NOC
--- NOTE | 2019-04-30 19:27 | NUR ---
RN CLOSING NOTES PATIENT IS SLEEPING IN BED, DOES NOT SHOW SIGNS OF DISTRESS OR PAIN. SHE HAD A CARDIOVERISON TODAY AT 1000, SUCCESSFUL CONVERSION OF AFIB TO SINUS RHYTHM. SAFETY MEASURES HAVE BEEN IMPLEMENTED, BED IS IN LOWEST AND LOCKED POSITION, CALL LIGHT IS WITHIN REACH. PATIENT HAS BEEN ENDORSED TO NIGHTSHIFT NURSE FOR CONTINUOUS CARE.
--- NOTE | 2019-04-30 19:30 | NUR ---
REPORT ENDORSED TO NOC
[2019-05-01] VITALS: BP 99/68
[2019-05-01] MEDS: methylPREDNISolone SOD SUCC 125 MG/2ML VIAL IV SCH ×2 (02:54→09:56)
[2019-05-01 04:00] VITALS: BP 93/55
[2019-05-01 07:14] LABS: BASOPHILS % (AUTO) 0.1 % (0.0-2.0); HEMATOCRIT 35 % (33-45); HEMOGLOBIN 11.6 g/dL (11.5-14.8); LYMPHOCYTES # (AUTO) 0.6 /CMM (0.8-4.8); MEAN CORPUSCULAR HGB CONC 33 g/dl (31.0-36.0); MEAN CORPUSCULAR VOLUME 84 fL (82-100); MONOCYTES # (AUTO) 0.3 /CMM (0.1-1.30); MONOCYTES % (AUTO) 3.2 % (2.0-12.0); NEUTROPHILS # (AUTO) 8.7 /CMM (1.8-8.9); NEUTROPHILS % (AUTO) 90.7 % (43.0-81.0); PLATELET COUNT (AUTO) 151 /CMM (150-450); RED BLOOD CELL COUNT(AUTO) 4.21 MIL/uL (4.0-5.2); WHITE BLOOD COUNT (AUTO) 9.6 K/uL (4.3-11.0)
--- NOTE | 2019-05-01 07:21 | NUR ---
RN OPENING NOTES RECEIVED HANDOFF REPORT FROM PM NURSE. PATIENT RESTING IN BED, SHE IS AO X3. DOES NOT SHOW ANY SIGNS OF SOB OR DISTRESS. SHE IS ON ROOM AIR AND IS TOLERATING WELL. SHE HAS A 20 G SL ON L HAND AND 20 G SL ON RFA, PATENT AND INTACT. SHE IS CONTROLLED A FIB. SKIN IS INTACT. SAFETY MEASURES HAVE BEEN IMPLEMENTED, CALL LIGHT WITHIN REACH, BED IN LOWEST AND LOCKED POSITION, WILL CONTINUE TO MONITOR FOR ANY CHANGES.
--- NOTE | 2019-05-01 07:23 | NUR ---
MDS COORDINATOR OPENING NOTES RECEIVED BEDSIDE REPORT. PATIENT SLEEPING ABLE TO AROUSE WITH VOICE AND TOUCH. A/O X4 . NO SIGNS OR SYMPTOMS OF RESPIRATORY DISTRESS SATURATING WELL ON ROOM AIR 96-98%. NO C/O ACUTE PAIN NOTED.SINUS ON MONITOR 60"S AFTER CARDIO CONVERSION 04/30 AMBULATORY IN ROOM WITH BRP SKIN INTACT. IV SALINE LOCK TO L HAND # 20 GAUGE AND RFA # [address] OF ABDOMEN IN AM PER DR SOTO. SAFETY PRECAUTIONS IN PLACE BED IN LOW LOCKED POSITION CALL LIGHT WITHIN REACH WILL CONT TO MONITOR ACCORDINGLY
[2019-05-01 07:27] LABS: CALCIUM, SERUM 10.4 mg/dL (8.5-10.1); CARBON DIOXIDE 21 mmol/L (21-32); CHLORIDE 99 mmol/L (98-107); CREATININE 1.7 mg/dL (0.6-1.3); GLUCOSE 143 mg/dL (74-106); MAGNESIUM 2.4 mg/dL (1.8-2.4); PHOSPHORUS 4.4 mg/dL (2.5-4.9); POTASSIUM 3.8 mmol/L (3.5-5.1); SODIUM SERUM 134 mmol/L (136-145); UREA NITROGEN, BLOOD 28 mg/dL (7-18)
[2019-05-01] MEDS: LEVALBUTEROL HCL NEB 1.25 MG/0.5 ML VIAL.NEB IH SCH ×2 (07:35→15:30)
[2019-05-01] MEDS: IPRATROPIUM NEB FS 0.5 MG/2.5 ML AMPUL.NEB NEB SCH ×2 (07:35→15:30)
[2019-05-01] MEDS: LIPASE/PROTEASE/AMYLASE 1 EACH CAPSULE.DR PO SCH ×2 (07:50→13:11)
[2019-05-01] MEDS: THYROID 30 MG TABLET PO SCH (07:50)
[2019-05-01 08:00] VITALS: BP_SYST 113; BP_SYST 93; BP_DIAS 55; BP_DIAS 68
[2019-05-01 08:06] LABS: *SPE A/G RATIO 1.1 (0.7-1.7); *SPE ALBUMIN 3.3 g/dL (2.9-4.4); *SPE ALPHA-1-GLOBULIN 0.4 g/dL (0.0-0.4); *SPE ALPHA-2-GLOBULIN 0.8 g/dL (0.4-1.0); *SPE BETA GLOBULIN 1.1 g/dL (0.7-1.3); *SPE M-SPIKE Not Observed g/dL (Not Observed); *SPEGAMMA GLOBULIN 0.8 g/dL (0.4-1.8); IMMUNOGLOBULIN A, SERUM 278 mg/dL (64-422); IMMUNOGLOBULIN G, SERUM 795 mg/dL (700-1600); IMMUNOGLOBULIN M, SERUM 38 mg/dL (26-217)
--- NOTE | 2019-05-01 08:37 | NUR ---
SPOKE WITH PATIENT IN REGARDS TO CT OF ABDOMEN. PATIENT DOES NOT WANT PROCEDURE AT THIS TIME WILL INFORM DR SOTO
[2019-05-01] MEDS: ACETYLCYSTEINE 10% SOLN 400 MG/4 ML VIAL PO SCH (09:00)
[2019-05-01 09:07] LABS: CARBOHYDRATE AG 19-9 11 U/mL (0-35)
[2019-05-01 09:55] VITALS: BP 113/68
[2019-05-01] MEDS: LOSARTAN POTASSIUM 50 MG TABLET PO SCH (09:55)
[2019-05-01] MEDS: buPROPion SR 150 MG TABLET.ER PO SCH (09:56)
[2019-05-01] MEDS: APIXABAN 5 MG TABLET PO SCH (09:56)
[2019-05-01] MEDS: DRONEDARONE HYDROCHLORIDE 400 MG TABLET PO SCH (09:58)
[2019-05-01] MEDS ORDERED: DRON400T2 PO (14:13)
[2019-05-01] MEDS ORDERED: APIX5TAB PO (14:13)
--- NOTE | 2019-05-01 15:45 | NUR ---
GRINDER HAND NOTES PATIENT HAS BEEN DISCHARGED IN STABLE CONDITION, SHOWED NO S/SX OF DISTRESS. SHE WAS GIVEN HER DISCHARGE PACKET WHICH INCLUDES: LAB RESULTS, TEST RESULTS, NEW PRESCRIPTIONS, INFORMATION FOR A-FIB, MRSA, SMOKING CESSATION, INFLUENZA, AND DVT. PNEUMOCOCCAL AND INFLUENZA VACCINATION WERE NOT GIVEN AT TIME OF DISCHARGE. SHE WAS GIVEN INSTRUCTIONS ON NEW PRESCRIPTION FOR ELIQUIS, MULTITAQ, AND PREDNSIONE. SHE WAS GIVEN INSTRUCTIONS TO TAPER OF PREDNISONE, VERBALIZED UNDERSTANDING. SHE WAS DC TO HOME, FRIEND PICKED HER UP. SHE IS TO FOLLOW UP WITH PCP AND CONCRETE STONE FINISHER WITHIN ONE WEEK. Addendum: 05/01/19 at 1606 by ANNA SMITH RN BOTH IV ON RFA AND LEFT HAND HAVE BEEN REMOVED, CATHETER INTACT, MINIMAL BLEEDING. PRESSURE APPLIED WITH GAUZE. SKIN IS INTACT, NO WOUNDS, NO PICTURES TAKEN.
== END 2019-05-01 15:35 | disposition home or self-care (01) | DRG 308 ==
LOC: ER 08:07 → TELE1 10:51 → TELE-TD 04-28 17:21 → ICU 04-30 08:20 → TELE1 04-30 10:08 → MEDSG1 05-01 10:45
PROVIDERS: ADMIT Hospitalist; ATTEND Hospitalist
PROC: 5A2204Z Restoration of Cardiac Rhythm, Single (ICD-10-PCS; principal; 2019-04-30)
DX: I48.91 Unspecified atrial fibrillation (principal); N17.0 Acute kidney failure with tubular necrosis; E87.1 Hypo-osmolality and hyponatremia; J44.0 Chronic obstructive pulmonary disease with (acute) lower respiratory infection; J90 Pleural effusion, not elsewhere classified; I95.9 Hypotension, unspecified; J44.9 Chronic obstructive pulmonary disease, unspecified; E03.9 Hypothyroidism, unspecified; Z85.07 Personal history of malignant neoplasm of pancreas; E87.6 Hypokalemia; E83.52 Hypercalcemia; I11.0 Hypertensive heart disease with heart failure; I50.9 Heart failure, unspecified; Z92.21 Personal history of antineoplastic chemotherapy; Z90.411 Acquired partial absence of pancreas; Z87.891 Personal history of nicotine dependence; Z86.73 Personal history of transient ischemic attack (TIA), and cerebral infarction without residual deficits; I70.0 Atherosclerosis of aorta; Z86.59 Personal history of other mental and behavioral disorders; J20.9 Acute bronchitis, unspecified
CPT/HCPCS: 36415; 71045-TC; 80048-TC; 80053-TC; 80061-TC; 82784; 83735-TC; 83880; 84100-TC; 84155; 84165; 84439-TC; 84443-TC; 84484-TC; 85025-TC; 85610-TC; 85730-TC; 86301; 86334; 87081-TC; 93307-TC; 93970-TC; 94799-TC; 97116-TC; 97530-TC; G0378; J0282; J1644; J1940; J2930; J3475; J3490; J7030; J7060; Q9967

== ENCOUNTER 2019-10-29 01:18 | Emergency (ER) | payer MEDICARE, OTHER ==
[~2019-10-29] VITALS: Ht 160 cm; Wt 63.5 kg
[2019-10-29 01:18] VITALS: BP 159/77
[~2019-10-29 01:18] MED LIST changes: +APIX5TAB PO; +BUPR150T10 PO; +DIPH1TAB28 PO; +DRON400T2 PO; -FLUO40CA8 PO; +LIPA1CAP21 PO; +LOSA50TA39 PO; +THYR60TA2 PO
[2019-10-29] MEDS ORDERED: HYDROCODONE/APAP 5/325MG 1 EACH TABLET PO ONE (02:30)
[2019-10-29] MEDS ORDERED: HYDROCODONE/APAP 5/325MG 1 EACH TABLET ONE (02:30)
[2019-10-29] MEDS ORDERED: IBUPROFEN 400 MG TABLET ONE (02:38)
[2019-10-29] MEDS ORDERED: IBUPROFEN 400 MG TABLET PO ONE (03:00)
== END 2019-10-29 02:46 | disposition home or self-care (01) ==
LOC: ER 01:18
DX: S63.591A Other specified sprain of right wrist, initial encounter (principal); J44.9 Chronic obstructive pulmonary disease, unspecified; I10 Essential (primary) hypertension; F17.200 Nicotine dependence, unspecified, uncomplicated; Z85.07 Personal history of malignant neoplasm of pancreas; Z98.890 Other specified postprocedural states; Z79.899 Other long term (current) drug therapy; W01.0XXA Fall on same level from slipping, tripping and stumbling without subsequent striking against object, initial encounter; Y93.89 Activity, other specified; Y92.89 Other specified places as the place of occurrence of the external cause; Y99.8 Other external cause status
CPT/HCPCS: 73110

== ENCOUNTER 2022-07-24 16:52 | Emergency (ER) | payer MEDICARE, OTHER ==
[~2022-07-24] VITALS: Ht 152.4 cm; Wt 49.9 kg
[~2022-07-24 16:52] MED LIST changes: -DRON400T2 PO; +DRON400T6 PO; -LIPA1CAP21 PO; +LIPA1CAP36 PO
--- NOTE | 2022-07-24 17:35 | NUR ---
C/O WORSENING LEFT HIP PAIN, S/P GLF 1 WEEK AGO. TO ER BED 12.
--- NOTE | 2022-07-24 17:45 | NUR ---
RAD AT BEDSIDE
--- NOTE | 2022-07-24 20:06 | NUR ---
COVID SWAB COLLECTED AND SENT TO LAB
[2022-07-24 21:04] LABS: BASOPHILS # (AUTO) 0.1 K/uL (0.0-0.2); EOSINOPHILS % (AUTO) 2.3 % (0.0-6.0); HEMATOCRIT 37 % (33-45); HEMOGLOBIN 12.4 g/dL (11.5-14.8); LYMPHOCYTES % (AUTO) 29.3 % (20.0-44.0); MEAN CORPUSCULAR HGB CONC 34 g/dl (31.0-36.0); MEAN CORPUSCULAR VOLUME 87 fL (82-100); MONOCYTES % (AUTO) 10.3 % (2.0-12.0); NEUTROPHILS # (AUTO) 5.8 K/uL (1.8-8.9); NEUTROPHILS % (AUTO) 57.1 % (43.0-81.0); PLATELET COUNT (AUTO) 158 K/uL (150-450); RED BLOOD CELL COUNT(AUTO) 4.22 MIL/uL (4.0-5.2); WHITE BLOOD COUNT (AUTO) 10.2 K/uL (4.3-11.0)
[2022-07-24 21:58] LABS: CALCIUM, SERUM 9.8 mg/dL (8.5-10.1); CARBON DIOXIDE 23 mmol/L (21-32); CHLORIDE 104 mmol/L (98-107); CREATININE 1.7 mg/dL (0.6-1.3); GLUCOSE 89 mg/dL (74-106); SODIUM SERUM 137 mmol/L (136-145); UREA NITROGEN, BLOOD 16 mg/dL (7-18)
--- NOTE | 2022-07-24 22:05 | NUR ---
CRITICAL POTASSIUM 2.7, MD AWARE
[2022-07-24 22:06] LABS: POTASSIUM 2.7 mmol/L (3.5-5.1)
[2022-07-24] MEDS ORDERED: POTASSIUM CHLORIDE 20 MEQ TAB.PRT.SR PO ONE (22:31)
[2022-07-24] MEDS: POTASSIUM CHLORIDE 20 MEQ TAB.PRT.SR PO ONE ×2 (22:37)
--- NOTE | 2022-07-24 22:39 | NUR ---
Patient does not wish to proceed with medical care recommended by Dr. Lemos. Patient given information related to possible complications, up to and including , which could occur as a result of leaving the hospital at this time. Patient verbalizes understanding of risks involved due to leaving against medical advice. Patient has signed AMA form.
[2022-07-24 22:40] VITALS: BP 138/76
[2022-07-25] MEDS ORDERED: CHLO25TA2 PO (14:01)
[2022-07-25] MEDS ORDERED: LISI40TA13 PO (14:01)
[2022-07-25] MEDS ORDERED: ROSU40TA23 PO (14:01)
[2022-07-25] MEDS ORDERED: FLUO40CA49 PO (14:02)
[2022-07-25] MEDS ORDERED: THYR60TA2 PO (14:02)
[2022-08-02] MEDS ORDERED: Hydrocodone/Apap 5/325MG PO (11:35)
[2022-08-02] MEDS ORDERED: LOSA50TA39 PO (11:35)
[2022-08-02] MEDS ORDERED: METH32TA2 PO (11:35)
[2022-08-02] MEDS ORDERED: CEFE2FRO IV (11:35)
== END 2022-07-24 22:40 | disposition left against medical advice (07) ==
LOC: ER 17:14
DX: S72.002A Fracture of unspecified part of neck of left femur, initial encounter for closed fracture (principal); W18.30XA Fall on same level, unspecified, initial encounter; Y92.89 Other specified places as the place of occurrence of the external cause; E87.6 Hypokalemia; I10 Essential (primary) hypertension; R00.1 Bradycardia, unspecified; Z20.822 Contact with and (suspected) exposure to COVID-19; Z85.07 Personal history of malignant neoplasm of pancreas; J44.9 Chronic obstructive pulmonary disease, unspecified; Z79.01 Long term (current) use of anticoagulants; Z79.899 Other long term (current) drug therapy; Z53.29 Procedure and treatment not carried out because of patient's decision for other reasons; N28.9 Disorder of kidney and ureter, unspecified; Z98.890 Other specified postprocedural states
CPT/HCPCS: 36415; 71045-TC; 72192-TC; 73502; 80048-TC; 85025-TC; 85730-TC; 87081-TC; 93970-TC; C9803

== ENCOUNTER 2022-07-25 13:25 | Inpatient (IN) | payer MEDICARE ==
[~2022-07-25] VITALS: Ht 160 cm; Wt 53.5 kg
--- NOTE | 2022-07-25 13:55 | NUR ---
MOVE SHEET SUBMITTED.
--- NOTE | 2022-07-25 14:00 | NUR ---
established IV line right AC 20g , blood sample obtained sent to lab
[2022-07-25] MEDS ORDERED: CHLO25TA2 PO (14:01)
[2022-07-25] MEDS ORDERED: ROSU40TA23 PO (14:01)
[2022-07-25] MEDS ORDERED: LISI40TA13 PO (14:01)
[2022-07-25] MEDS ORDERED: THYR60TA2 PO (14:02)
[2022-07-25] MEDS ORDERED: FLUO40CA49 PO (14:02)
--- NOTE | 2022-07-25 14:05 | NUR ---
'IV 20G "LEFT" AC
[2022-07-25 14:08] LABS: BASOPHILS # (AUTO) 0.1 K/uL (0.0-0.2); BASOPHILS % (AUTO) 0.7 % (0.0-2.0); EOSINOPHILS % (AUTO) 1.1 % (0.0-6.0); HEMATOCRIT 34 % (33-45); HEMOGLOBIN 11.7 g/dL (11.5-14.8); LYMPHOCYTES # (AUTO) 1.6 K/uL (0.8-4.8); LYMPHOCYTES % (AUTO) 20.7 % (20.0-44.0); MEAN CORPUSCULAR HGB CONC 34 g/dl (31.0-36.0); MEAN CORPUSCULAR VOLUME 88 fL (82-100); MONOCYTES # (AUTO) 0.8 K/uL (0.1-1.30); MONOCYTES % (AUTO) 10.9 % (2.0-12.0); NEUTROPHILS # (AUTO) 5.1 K/uL (1.8-8.9); NEUTROPHILS % (AUTO) 66.6 % (43.0-81.0); PLATELET COUNT (AUTO) 151 K/uL (150-450); RED BLOOD CELL COUNT(AUTO) 3.86 MIL/uL (4.0-5.2); WHITE BLOOD COUNT (AUTO) 7.7 K/uL (4.3-11.0)
--- NOTE | 2022-07-25 14:15 | NUR ---
covid swab done sent to lab
--- NOTE | 2022-07-25 15:03 | NUR ---
Stephanie ochoa in [facility] - 07/25/22 at [address] FITCH AT [facility] FOR [facility]
--- NOTE | 2022-07-25 15:09 | NUR ---
Dr. Berg at bedside , explained to pt about the operation . pt. agreed to have surgey
[2022-07-25 15:15] LABS: CALCIUM, SERUM 9.4 mg/dL (8.5-10.1); CARBON DIOXIDE 24 mmol/L (21-32); CHLORIDE 106 mmol/L (98-107); CREATININE 1.8 mg/dL (0.6-1.3); GLUCOSE 155 mg/dL (74-106); POTASSIUM 3.3 mmol/L (3.5-5.1); SODIUM SERUM 139 mmol/L (136-145); UREA NITROGEN, BLOOD 19 mg/dL (7-18)
--- NOTE | 2022-07-25 15:56 | NUR ---
pt ama yesterday , covid test is within 24 hours and still valid.
--- NOTE | 2022-07-25 16:12 | NUR ---
NPO post midnight
--- NOTE | 2022-07-25 16:13 | NUR ---
non weight bearing Left lower ext.
--- NOTE | 2022-07-25 16:14 | NUR ---
SURGERY = scheduled at 10/26/21 at 1100H Closed reduction percutaneous pinning at the left hip Addendum: 07/25/22 at 1702 by ELÍAS CORRECTION: 07/26/2022 @ 1100
[2022-07-25] MEDS ORDERED: POTASSIUM CHLORIDE 20 MEQ TAB.PRT.SR PO ONE ×2 (16:30→17:01)
--- NOTE | 2022-07-25 16:36 | NUR ---
[facility] CALLED ASSEMBLER RADIO AND ELECTRICAL PAGED.
[2022-07-25] MEDS ORDERED: ONDANSETRON HCL/PF 4 MG/2 ML VIAL IVP PRN (17:00)
--- NOTE | 2022-07-25 17:04 | NUR ---
GOT BED 326-2
--- NOTE | 2022-07-25 17:11 | NUR ---
REPORT GIVEN TO RIC FOR LATHA
[2022-07-25] MEDS: IV NS 0.9% 1,000 ML IV SCH (18:09)
[2022-07-25] MEDS: LOSARTAN POTASSIUM 50 MG TABLET PO SCH (18:30)
--- NOTE | 2022-07-25 19:11 | NUR ---
ADMISSION 76 y/o female Alert Oriented x4. Skin checked done, no pressure injury. Bantam to room, unit, staff. Made comfortable in bed, provided warm blanket. Fall/skin precaution maintained.
--- NOTE | 2022-07-25 19:42 | NUR ---
NEW ORDER Dr. Akhtar ordered to place patient NPO except meds after midnight. Patient aware.
[2022-07-25 20:00] VITALS: BP 142/62
[2022-07-25 21:01] VITALS: BP 134/55
[2022-07-25] MEDS: MORPHINE SULFATE INJ 2 MG/ML DISP.SYRIN IV PRN (22:27)
--- NOTE | 2022-07-25 22:29 | NUR ---
HIP PAIN Repositioned patient in bed, supported LLE with pillow. Voided urine in bed gomes. C/o left hip pain 05/02. Given IV Morphine, will re assess pain level.
--- NOTE | 2022-07-25 22:47 | NUR ---
CONSENT Plan for surgery tomorrow. Anesthesia, Blood, Procedure understand and consented by patient. Consent form in the chart.
[2022-07-26] VITALS (11 sets, daily range): BP systolic 94–144; BP diastolic 33–84
--- NOTE | 2022-07-26 06:14 | NUR ---
END OF SHIFT REPORT Patient in bed, Alert Oriented x4. IV line left AC intact, IV fluids infusing. Limited movement LLE d/t left hip fracture, pain improved with IV Morphine. NPO except medication since midnight. Plan for procedure surgery left hip fracture today. Procedure consented by patient. Procedural checklist completed.
[2022-07-26 07:05] LABS: ALANINE AMINOTRANSFERASE 52 U/L (12-78); ALBUMIN 2.6 g/dL (3.4-5.0); ALKALINE PHOSPHATASE 83 U/L (46-116); ASPARTATE AMINOTRANSFERASE 43 U/L (15-37); BILIRUBIN,TOTAL 0.7 mg/dL (0.2-1.0); CALCIUM, SERUM 8.8 mg/dL (8.5-10.1); CARBON DIOXIDE 24 mmol/L (21-32); CHLORIDE 113 mmol/L (98-107); CREATININE 1.5 mg/dL (0.6-1.3); GLUCOSE 105 mg/dL (74-106); MAGNESIUM 1.7 mg/dL (1.8-2.4); PHOSPHORUS 3.4 mg/dL (2.5-4.9); POTASSIUM 3.4 mmol/L (3.5-5.1); SODIUM SERUM 142 mmol/L (136-145); TOTAL PROTEIN, SERUM 5.2 g/dL (6.4-8.2); UREA NITROGEN, BLOOD 17 mg/dL (7-18)
--- NOTE | 2022-07-26 07:09 | NUR ---
MS RN OPENING NOTES RECEIVED PATIENT SLEEPING IN BED, ON ROOM AIR NO S/S OF RESPIRATORY DISTRESS. A/Ox4, ABLE TO MAKE NEEDS KNOWN. NO S/S OF PAIN OR DISCOMFORT. IV ACCESS L AC#20 @NS 75 ML/HR, INTACT AND PATENT. NO S/S OF INFILTRATION. SKIN ISSUES: DISCOLORATION OF LEFT HIP. PATIENT CONTINENT USES BEDPAN. CURRENTLY NPO EXCEPT MEDS PENDING SURGERY. SAFETY MEASURES IN PLACE: BED LOCKED AND IN LOWEST POSITION, HOB ELEVATED, SIDE RAILS UPx2, CALL LIGHT WITHIN REACH. WILL CONTINUE TO MONITOR.
[2022-07-26 07:13] LABS: BASOPHILS # (AUTO) 0.1 K/uL (0.0-0.2); EOSINOPHILS % (AUTO) 3.3 % (0.0-6.0); HEMATOCRIT 31 % (33-45); HEMOGLOBIN 10.3 g/dL (11.5-14.8); LYMPHOCYTES # (AUTO) 1.9 K/uL (0.8-4.8); LYMPHOCYTES % (AUTO) 34.7 % (20.0-44.0); MEAN CORPUSCULAR HGB CONC 33 g/dl (31.0-36.0); MEAN CORPUSCULAR VOLUME 89 fL (82-100); MONOCYTES # (AUTO) 0.8 K/uL (0.1-1.30); MONOCYTES % (AUTO) 14.3 % (2.0-12.0); NEUTROPHILS # (AUTO) 2.5 K/uL (1.8-8.9); NEUTROPHILS % (AUTO) 46.7 % (43.0-81.0); PLATELET COUNT (AUTO) 123 K/uL (150-450); RED BLOOD CELL COUNT(AUTO) 3.46 MIL/uL (4.0-5.2); WHITE BLOOD COUNT (AUTO) 5.4 K/uL (4.3-11.0)
[2022-07-26] MEDS: IV NS 0.9% 1,000 ML IV SCH ×2 (07:19→18:17)
[2022-07-26] MEDS: ATORVASTATIN 40 MG TABLET PO SCH (08:29)
[2022-07-26] MEDS: FLUOXETINE HCL 20 MG CAPSULE PO SCH (08:29)
[2022-07-26] MEDS: LISINOPRIL (20MG) 20 MG TABLET PO SCH (08:30)
[2022-07-26] MEDS: LOSARTAN POTASSIUM 50 MG TABLET PO SCH ×2 (08:30→17:00)
[2022-07-26] MEDS: THYROID 30 MG TABLET PO SCH (08:31)
[2022-07-26] MEDS ORDERED: POTASSIUM CHLORIDE 20 MEQ TAB.PRT.SR PO ONE (09:00)
[2022-07-26] MEDS ORDERED: Medication Not On Formulary EA (Chlorthalidone 25 MG) PO SCH (09:00)
[2022-07-26] MEDS ORDERED: MAGNESIUM OXIDE 400 MG TABLET PO ONE (11:00)
[2022-07-26] MEDS ORDERED: ANESTHESIA TRAY IN PYXIS 1 EA TRAY MC ONE (13:32)
[2022-07-26] MEDS ORDERED: BUPIVACAINE 0.25% 75 MG/30 ML VIAL ONE (13:32)
--- NOTE | 2022-07-26 13:41 | NUR ---
RN NOTES PATIENT PICKED UP FOR SURGERY. STABLE ON ROOM AIR, NO S/S OF DISTRESS OR DISCOMFORT. ACCOMPANIED BY TWO OR STAFF.
[2022-07-26] MEDS ORDERED: FENTANYL PF 100MCG/2ML AMPUL ONE ×2 (14:11→14:12)
[2022-07-26] MEDS ORDERED: ROCURONIUM BROMIDE 50 MG/5 ML ONE (14:12)
[2022-07-26] MEDS ORDERED: GLYCOPYRROLATE 0.2 MG/ML VIAL ONE (14:54)
[2022-07-26] MEDS ORDERED: LABETALOL HCL IV 100MG VIAL ONE (15:45)
[2022-07-26] MEDS ORDERED: NALOXONE HCL 0.4 MG/ML AMPUL ONE (17:11)
--- NOTE | 2022-07-26 17:15 | NUR ---
CALLED BY NEHA VELASQUEZ TO RE-EVAL PATIENT IN PACU. PATIENT NOTED AT THIS TIME LESS RESPONSIVE , HEMODYNAMICS STABLE. ABG DRAWN, RELAYED TO DR. SIMMONS, ANESTHESIA AND SPOKE TO MD FOR PATIENT TO BE TRANSFERRED TO ICU FOR POSS. REINTUBATION. 1740 -SEEN AND EXAMINED BY DR. SIMMONS, WILL ATTEMPT RESCUE BIPAP AT THIS TIME. RECHECK ABG ON BIPAP POST 1 HR.
--- NOTE | 2022-07-26 17:15 | NUR ---
RN NOTES RECEIVED PT ON FROM PACU, LETHARGIC, RESPONDS TO PAINFUL STIMULI , NON VERBAL , PT ON 8L FACE MASK, DR SIMMONS AT THE BEDSIDE, PT PLACE ON BIPAP PER DR SIMMONS ORDER, NOTED LEFT HIP DRESSING WITH SMALL AMOUNT OF BLOODY DRAINAGE, CONTINUE TO MONITOR .
[2022-07-26] MEDS ORDERED: DOCUSATE SODIUM 250 MG CAPSULE PO PRN (17:30)
[2022-07-26] MEDS ORDERED: SENNOSIDES 8.6 MG TABLET PO PRN (17:30)
[2022-07-26] MEDS ORDERED: BISACODYL SUPP (10 MG) 10 MG/SUPP.RECT SUPP.RECT RC PRN (17:30)
--- NOTE | 2022-07-26 18:30 | NUR ---
RN NOTES PT MORE AWAKE, STATED SHE IS COLD, ABG DONE, DR SIMMONS NOTIFIED, PT PLACED ON 8L O2 FACE MASK PER ORDER , NEW ORDER GIVEN FOR ABG AT 1900. CONTINUE TO MONITOR. Addendum: 07/26/22 at 1841 by MARY LOU RIZZO RN CORRECTION QBOVE TIME IS 1726
[2022-07-26 18:55] LABS: ABG BASE EXCESS -15.3 mmol/L; ABG OXYGEN SATURATION 94.3 % (92.0-98.5); ABG PCO2 97.2 mmHg (35.0-45.0); ABG PH 6.908 (7.350-7.450); ABG PO2 101.1 mmHg (75.0-100.0); AaDO2 146.1 mmHg; COHb 0.3 % (0.5-1.5); MetHb 0.4 % (0.0-1.5); O2Hb 93.6 % (94.0-97.0); SITE, ABG Right Radial; VENT MODE, BG 10L SIMPLE MASK
[2022-07-26 18:55] LABS: ABG BASE EXCESS -13.6 mmol/L; ABG OXYGEN SATURATION 95.2 % (92.0-98.5); ABG PCO2 34.8 mmHg (35.0-45.0); ABG PH 7.203 (7.350-7.450); ABG PO2 84.9 mmHg (75.0-100.0); AaDO2 232.5 mmHg; COHb 0.2 % (0.5-1.5); MetHb 0.2 % (0.0-1.5); O2Hb 94.8 % (94.0-97.0); SITE, ABG Left Radial; VENT MODE, BG ST 20/8 16 50%
--- NOTE | 2022-07-26 19:06 | NUR ---
RN NOTES PT FULLY AWAKE, ON FACE MASK AT 8L , VSS STABLE WILL ENDORSE TO PRODUCT TRAINER NURSE FOR CONTINUITY OF CARE
--- NOTE | 2022-07-26 19:27 | NUR ---
ABG DONE ON SIMPLE MASK. NOTIFIED RN AND MD WITH RESULT. PER MD TO PUT PT ON NOC BIPAP.
[2022-07-26] MEDS: MORPHINE SULFATE INJ 2 MG/ML DISP.SYRIN IV PRN (22:07)
[2022-07-26] MEDS: HEPARIN SODIUM, PORCINE 5000 UNITS/1 ML VIAL SQ SCH (22:09)
[2022-07-26] MEDS: ANCEF 1 GM/50 ML D5W IV SCH ×2 (23:00)
[2022-07-27] VITALS (54 sets, daily range): BP systolic 76–146; BP diastolic 21–103
[2022-07-27] MEDS ORDERED: CEFAZOLIN 1 GM ONE (00:08)
--- NOTE | 2022-07-27 05:44 | NUR ---
Pt taken off NOC BiPAP and placed on 3L NC.
[2022-07-27 05:58] LABS: ABG BASE EXCESS -13.3 mmol/L; ABG OXYGEN SATURATION 98.3 % (92.0-98.5); ABG PCO2 32.5 mmHg (35.0-45.0); ABG PH 7.226 (7.350-7.450); ABG PO2 146.3 mmHg (75.0-100.0); AaDO2 101.5 mmHg; COHb 0.3 % (0.5-1.5); MetHb 0.3 % (0.0-1.5); O2Hb 97.7 % (94.0-97.0); SITE, ABG Right Radial; VENT MODE, BG SM
--- NOTE | 2022-07-27 07:30 | NUR ---
OPENING NOTE: REPORT RECEIVED FROM OVERNIGHT RN. ORDERS AND LABS REVIEWED DURING REPORT. PT HAD LEFT HIP SURGERY YESTERDAY, DRESSING CDI, NO DRAINS NOTED. PT ALERT OX3 ON 3L NC. BP LOW AT 89/48, AM BP MEDS HELD. PT CHECKED ON HOURLY AND PRN BY NURSING STAFF.
[2022-07-27 07:59] LABS: CALCIUM, SERUM 8.5 mg/dL (8.5-10.1); CARBON DIOXIDE 18 mmol/L (21-32); CHLORIDE 116 mmol/L (98-107); GLUCOSE 103 mg/dL (74-106); POTASSIUM 3.2 mmol/L (3.5-5.1); SODIUM SERUM 145 mmol/L (136-145); UREA NITROGEN, BLOOD 22 mg/dL (7-18)
[2022-07-27 08:05] LABS: ALANINE AMINOTRANSFERASE 67 U/L (12-78); ALBUMIN 2.4 g/dL (3.4-5.0); ALKALINE PHOSPHATASE 75 U/L (46-116); ASPARTATE AMINOTRANSFERASE 79 U/L (15-37); BILIRUBIN,TOTAL 0.6 mg/dL (0.2-1.0); TOTAL PROTEIN, SERUM 5.2 g/dL (6.4-8.2)
[2022-07-27] MEDS: IV NS 0.9% 1,000 ML IV SCH ×2 (08:11→18:19)
[2022-07-27] MEDS: ATORVASTATIN 40 MG TABLET PO SCH (08:31)
[2022-07-27] MEDS: FLUOXETINE HCL 20 MG CAPSULE PO SCH (08:31)
[2022-07-27] MEDS: LISINOPRIL (20MG) 20 MG TABLET PO SCH (08:35)
[2022-07-27] MEDS: HEPARIN SODIUM, PORCINE 5000 UNITS/1 ML VIAL SQ SCH ×2 (08:36→22:17)
[2022-07-27 08:40] LABS: CREATININE, URINE 37.2 MG/DL (30.0-125.0)
[2022-07-27] MEDS: POTASSIUM CHLORIDE 20 MEQ TAB.PRT.SR PO SCH ×3 (08:44→11:36)
[2022-07-27] MEDS: ANCEF 1 GM/50 ML D5W IV SCH ×2 (08:44)
[2022-07-27] MEDS: THYROID 30 MG TABLET PO SCH (08:44)
[2022-07-27] MEDS: HYDROCODONE/APAP 5/325MG TABLET PO PRN (08:45)
[2022-07-27] MEDS: IPRATROPIUM NEB FS 0.5 MG/2.5 ML AMPUL.NEB NEB SCH ×5 (09:00→23:12)
[2022-07-27] MEDS ORDERED: MAGNESIUM OXIDE 400 MG TABLET PO ONE (10:00)
[2022-07-27] MEDS ORDERED: IV NS 0.9% 500 ML IV ONE (10:30)
[2022-07-27] MEDS: methylPREDNISolone SOD SUCC 125 MG/2ML VIAL IV SCH ×2 (10:41→16:59)
[2022-07-27] MEDS ORDERED: IV NS 0.9% 1,000 ML IV ONE (13:30)
[2022-07-27] MEDS ORDERED: NOREPINEPHRINE 8 MG in IV NS 0.9% 242 ML IV PRN (14:00)
[2022-07-27 15:34] LABS: HEMATOCRIT 29 % (33-45); HEMOGLOBIN 9.5 g/dL (11.5-14.8); LYMPHOCYTES # (AUTO) 0.4 K/uL (0.8-4.8); LYMPHOCYTES % (AUTO) 1.7 % (20.0-44.0); MEAN CORPUSCULAR HGB CONC 33 g/dl (31.0-36.0); MEAN CORPUSCULAR VOLUME 90 fL (82-100); MONOCYTES # (AUTO) 1.2 K/uL (0.1-1.30); MONOCYTES % (AUTO) 4.9 % (2.0-12.0); NEUTROPHILS # (AUTO) 22.9 K/uL (1.8-8.9); NEUTROPHILS % (AUTO) 93.4 % (43.0-81.0); PLATELET COUNT (AUTO) 95 K/uL (150-450); RED BLOOD CELL COUNT(AUTO) 3.23 MIL/uL (4.0-5.2); WHITE BLOOD COUNT (AUTO) 24.5 K/uL (4.3-11.0)
[2022-07-27 16:40] LABS: BILIRUBIN,DIRECT 0.2 mg/dL (0.0-0.2)
--- NOTE | 2022-07-27 18:29 | NUR ---
END OF SHIFT NOTE: PT'S BP WAS BORDERLINE LOW MOST OF THE SHIFT. PER DR CHÁVEZ IF PATIENTS MAP STAYS BELOW 65 START LEVOPHED GTT. BOLUSES EQUAL TO 1500 ML GIVEN THIS SHIFT. PT ALSO DRANK A LOT OF WATER THIS SHIFT. OF THIS TIME LEVOPHED HAS NOT NEEDED TO BE STARTED, WILL ENDORSE TO NEXT SHIFT. URINE OUTPUT LOW THIS SHIFT, TOTAL OF 375 ML OUT OF MENENDEZ THIS SHIFT. MENENDEZ CATHETER NOT REMOVED TODAY D/T LOW URINE OUTPUT AND FLUID BOLUSES GIVEN. PHYSICAL THERAPY WAS NOT ABLE TO WORK WITH PATIENT D/T LOW BP. PT WAS ALERT OX4 ALL SHIFT. PAIN PILL GIVEN X1 THIS SHIFT. PT CHECKED ON HOURLY AND PRN BY NURSING STAFF.
[2022-07-27 18:48] LABS: ABG BASE EXCESS -12.7 mmol/L; ABG PH 7.266 (7.350-7.450); ABG PO2 115.5 mmHg (75.0-100.0); AaDO2 78.7 mmHg; COHb 0.3 % (0.5-1.5); MetHb 0.3 % (0.0-1.5); O2Hb 97.4 % (94.0-97.0); SITE, ABG Right Radial; VENT MODE, BG NIPPV
--- NOTE | 2022-07-27 20:00 | NUR ---
Received patient awake alert and oriented x3.S/P Left Hip Closed Reduction and Percutaneous Pinning 07/26/22.Dressing clean dry and intact.VS stable.SR.Respiration even and unlabored.With O2 3LNC SPO2 100%.Denies pain or any discomfort.Turned and repositioned to comfort.Call light at bedside.IVF infusing well.Continue monitoring.
[2022-07-27 21:25] LABS: BAND % (MANUAL) 13 % (0.0-5.0); LYMPHOCYTES % (MANUAL) 5 % (16-48); NEUTROPHILS % (MANUAL) 82 (42-76)
[2022-07-27] MEDS: PANTOPRAZOLE 40 MG TABLET.DR PO SCH (23:00)
[2022-07-28] VITALS (21 sets, daily range): BP systolic 105–174; BP diastolic 59–100
[2022-07-28] MEDS: IPRATROPIUM NEB FS 0.5 MG/2.5 ML AMPUL.NEB NEB SCH ×6 (03:30→23:19)
[2022-07-28] MEDS: IV NS 0.9% 1,000 ML IV SCH (04:40)
[2022-07-28 05:13] LABS: HEMATOCRIT 31 % (33-45); HEMOGLOBIN 10.3 g/dL (11.5-14.8); LYMPHOCYTES # (AUTO) 0.7 K/uL (0.8-4.8); MEAN CORPUSCULAR HGB CONC 34 g/dl (31.0-36.0); MEAN CORPUSCULAR VOLUME 89 fL (82-100); MONOCYTES # (AUTO) 1.1 K/uL (0.1-1.30); MONOCYTES % (AUTO) 4.6 % (2.0-12.0); NEUTROPHILS # (AUTO) 22.7 K/uL (1.8-8.9); NEUTROPHILS % (AUTO) 92.4 % (43.0-81.0); PLATELET COUNT (AUTO) 100 K/uL (150-450); RED BLOOD CELL COUNT(AUTO) 3.45 MIL/uL (4.0-5.2); WHITE BLOOD COUNT (AUTO) 24.6 K/uL (4.3-11.0)
[2022-07-28 05:46] LABS: ALANINE AMINOTRANSFERASE 38 U/L (12-78); ALBUMIN 2.5 g/dL (3.4-5.0); ALKALINE PHOSPHATASE 70 U/L (46-116); ASPARTATE AMINOTRANSFERASE 40 U/L (15-37); BILIRUBIN,TOTAL 0.7 mg/dL (0.2-1.0); CALCIUM, SERUM 8.8 mg/dL (8.5-10.1); CARBON DIOXIDE 17 mmol/L (21-32); CHLORIDE 107 mmol/L (98-107); CREATININE 1.8 mg/dL (0.6-1.3); GLUCOSE 140 mg/dL (74-106); MAGNESIUM 1.5 mg/dL (1.8-2.4); PHOSPHORUS 4.2 mg/dL (2.5-4.9); POTASSIUM 4.7 mmol/L (3.5-5.1); SODIUM SERUM 133 mmol/L (136-145); TOTAL PROTEIN, SERUM 5.4 g/dL (6.4-8.2); UREA NITROGEN, BLOOD 29 mg/dL (7-18)
--- NOTE | 2022-07-28 06:30 | NUR ---
Patient resting.No acute distress noted.VS remains stable.SR.Normotensive.Denies pain. or sob.Was medicated for nausea x1.AM care done.Turned and repositioned Q 2 hrs. Safety measures maintained.Kept comfortable.
--- NOTE | 2022-07-28 07:30 | NUR ---
OPENING NOTE: REPORT RECEIVED FROM CAYETANO ESCALANTE. ORDERS AND LABS REVIEWED DURING REPORT. PT'S BLOOD PRESSURE STABILIZED OVERNIGHT, NO NEED TO START LEVOPHED. PT ALERT OX3 WITHOUT DISTRESS. PT CHECKED ON HOURLY AND PRN BY NURSING STAFF.
[2022-07-28] MEDS: THYROID 30 MG TABLET PO SCH (08:16)
[2022-07-28] MEDS: Magnesium 1GM/D5W 100ML PREMIX 100 ML IV SCH ×2 (08:16→09:35)
[2022-07-28] MEDS: ATORVASTATIN 40 MG TABLET PO SCH (08:17)
[2022-07-28] MEDS: PANTOPRAZOLE 40 MG TABLET.DR PO SCH (08:17)
[2022-07-28] MEDS: LISINOPRIL (20MG) 20 MG TABLET PO SCH (08:17)
[2022-07-28] MEDS: FLUOXETINE HCL 20 MG CAPSULE PO SCH (08:17)
[2022-07-28] MEDS: methylPREDNISolone SOD SUCC 125 MG/2ML VIAL IV SCH ×2 (08:18→17:43)
[2022-07-28] MEDS: HEPARIN SODIUM, PORCINE 5000 UNITS/1 ML VIAL SQ SCH ×2 (08:19→20:44)
[2022-07-28] MEDS ORDERED: VANCOMYCIN 1 GM in IV D5W 250ml IV ONE (10:00)
[2022-07-28] MEDS: CALCIUM CARBONATE 500 MG TAB.CHEW PO PRN (11:19)
[2022-07-28 11:37] LABS: ABG BASE EXCESS -10.9 mmol/L; ABG OXYGEN SATURATION 93.3 % (92.0-98.5); ABG PCO2 27.3 mmHg (35.0-45.0); ABG PH 7.322 (7.350-7.450); ABG PO2 68.4 mmHg (75.0-100.0); AaDO2 41.8 mmHg; COHb 0.3 % (0.5-1.5); MetHb 0.3 % (0.0-1.5); O2Hb 92.7 % (94.0-97.0); SITE, ABG Right Radial; VENT MODE, BG room air
[2022-07-28] MEDS: CEFEPIME 2 GM in IV D5W 100 ML IV SCH (12:57)
--- NOTE | 2022-07-28 13:46 | NUR ---
TELEPHONE REPORT GIVEN TO JONA ESCALANTE FOR PATIENT TRANSFER TO ROOM 307-1. PT TRANSFERRED AT THIS TIME VIA BED, ACLS PROTOCOL FOLLOWED. ONCOMING RN MET COUNTY ADMINISTRATOR IN ROOM. TELEMETRY APPLIED. PT SETTLED IN ROOM.
--- NOTE | 2022-07-28 14:10 | NUR ---
OPENING NOTES RECEIVED PATIENT FROM ICU DEPT ALERT/ORIENTED X4 AT 2PM. ABLE TO MAKE NEEDS KNOWN. ON RA, TOLERATING WELL. NO SIGNS OF RESPIRATIORY/CARDIAC DISTRESS NOTED. BASELINE VITALS ARE FOLLOWS BP= 138/73 RR=18 T=98.3 SPO2=94% HI=69. PT. VERBALIZED TOLERABLE PAIN WITH A 4/10 RATE. WITH FC, PATENT AND DRAINING WELL. FOR RE-INSERTION OF IV LINE. KEPT COMFORTABLE, RE-ORIENTED TO ROOM. WILL MONITOR.
[2022-07-28 16:20] LABS: BILIRUBIN,URINE NEGATIVE (NEGATIVE); COLOR,URINE YELLOW (YELLOW); LEUKOCYTE ESTERASE ,URINE NEGATIVE (NEGATIVE); NITRITE, URINE NEGATIVE (NEGATIVE); PROTEIN,URINE NEGATIVE (NEGATIVE); UGLUCOSE NEGATIVE (NEGATIVE); UROBILINOGEN,URINE 0.2 EU/dL (0.2)
[2022-07-28 17:07] LABS: BACTERIA,URINE 2+ /HPF (None Seen)
[2022-07-28] MEDS: ACETAMINOPHEN 325 MG TABLET PO PRN (18:11)
--- NOTE | 2022-07-28 18:47 | NUR ---
RN CLOSING NOTES PATIENT ALERT AND ORIENTED X4, ON ROOM AIR, TOLERATING WELL. NO SIGNS OF RESPIRATIORY/CARDIAC DISTRESS NOTED. WITH NEW IV LINE AT RFA 20 PATENT AND INTACT. VERBALIZED TOLERABLE PAIN WITH A 4/10 RATE, PRN MEDS GIVEN. WITH FC, PATENT AND DRAINING WELL. DUE MEDS GIVEN, KEPT COMFORTABLE. ENDORSED TO NIGHT NOD.
--- NOTE | 2022-07-28 20:00 | NUR ---
RN OPENING NOTES RECEIVED PATIENT LYING AWAKE IN BED. ALERT AND ORIENTED X4, ON ROOM AIR, BREATHING EVENLY AND UNLABORED. NO SIGNS OF RESPIRATORY/CARDIAC DISTRESS NOTED. IV ACCESS AT RFA #20, SALINE LOCKED, PATENT AND INTACT. WITH MENENDEZ CATHETER ATTACHED, DRAINING ADEQUATE CLEAR, FELIPE COLORED URINE. NO COMPLAINTS OF PAIN AT THIS TIME. SAFETY PRECAUTIONS INITIATED; SIDE RAILS UP X2, BED LOWERED AND LOCKED. CALL LIGHT WITHIN REACH. WILL CONTINUE TO MONITOR THROUGHOUT THE SHIFT.
[2022-07-29] VITALS: BP 138/73
[2022-07-29 04:00] VITALS: BP 146/93
[2022-07-29 04:19] VITALS: BP 146/93
[2022-07-29] MEDS: IPRATROPIUM NEB FS 0.5 MG/2.5 ML AMPUL.NEB NEB SCH ×5 (04:19→20:15)
--- NOTE | 2022-07-29 05:51 | NUR ---
RN NOTE MENENDEZ CATHETER REMOVED. NO SIGNS OF PAIN AND DISCOMFORT. TO MONITOR URINARY RETENTION.
[2022-07-29] MEDS: HYDROCODONE/APAP 5/325MG TABLET PO PRN (05:56)
--- NOTE | 2022-07-29 06:30 | NUR ---
PAPER SPOOLER CLOSING NOTE PATIENT LYING AWAKE IN BED. ALERT AND ORIENTED X4, ON ROOM AIR, BREATHING EVENLY AND UNLABORED. NO SIGNS OF RESPIRATORY/CARDIAC DISTRESS NOTED. ON TAXATION INSPECTOR READING SINUS RHYTHM HR 68. IV ACCESS AT RFA #20, SALINE LOCKED, PATENT AND INTACT. MENENDEZ CATHETER REMOVED. TOLERATED PROCEDURE WELL. TO MONITOR URINARY RETENTION POST-REMOVAL. CONTINUE PHYSICAL THERAPY, PAIN CONTROL AND BP CONTROL. NO COMPLAINTS OF PAIN AT THIS TIME. SAFETY PRECAUTIONS INITIATED; SIDE RAILS UP X2, BED LOWERED AND LOCKED. CALL LIGHT WITHIN REACH. ENDORSED TO DAY SHIFT RN FOR LATHA.
[2022-07-29 07:14] LABS: ALANINE AMINOTRANSFERASE 22 U/L (12-78); ALBUMIN 2.1 g/dL (3.4-5.0); ALKALINE PHOSPHATASE 63 U/L (46-116); ASPARTATE AMINOTRANSFERASE 21 U/L (15-37); BILIRUBIN,TOTAL 0.5 mg/dL (0.2-1.0); CARBON DIOXIDE 18 mmol/L (21-32); CHLORIDE 106 mmol/L (98-107); CREATININE 1.7 mg/dL (0.6-1.3); GLUCOSE 126 mg/dL (74-106); POTASSIUM 4.1 mmol/L (3.5-5.1); SODIUM SERUM 133 mmol/L (136-145); TOTAL PROTEIN, SERUM 4.8 g/dL (6.4-8.2); UREA NITROGEN, BLOOD 37 mg/dL (7-18)
[2022-07-29 07:17] LABS: HEMATOCRIT 26 % (33-45); HEMOGLOBIN 8.9 g/dL (11.5-14.8); LYMPHOCYTES # (AUTO) 0.6 K/uL (0.8-4.8); LYMPHOCYTES % (AUTO) 3.4 % (20.0-44.0); MEAN CORPUSCULAR HGB CONC 34 g/dl (31.0-36.0); MEAN CORPUSCULAR VOLUME 87 fL (82-100); MONOCYTES # (AUTO) 0.7 K/uL (0.1-1.30); MONOCYTES % (AUTO) 4.4 % (2.0-12.0); NEUTROPHILS # (AUTO) 14.9 K/uL (1.8-8.9); NEUTROPHILS % (AUTO) 92.2 % (43.0-81.0); PLATELET COUNT (AUTO) 93 K/uL (150-450); RED BLOOD CELL COUNT(AUTO) 3.02 MIL/uL (4.0-5.2); WHITE BLOOD COUNT (AUTO) 16.1 K/uL (4.3-11.0)
--- NOTE | 2022-07-29 07:30 | NUR ---
RAILROAD CROSSING PROTECTION MAINTAINER OPENING NOTES RECEIVED PATIENT LYING AWAKE IN BED. ALERT AND ORIENTED X4, ON ROOM AIR, AND TOLERATED WELL . NO SIGNS OF RESPIRATORY/CARDIAC DISTRESS NOTED. IV ACCESS AT RFA #20, SALINE LOCKED, PATENT AND INTACT. . WITH ACOUSTIC SENSOR OPERATOR AND READING OF SR 63 , NO COMPLAINTS OF PAIN AT THIS TIME. SAFETY PRECAUTIONS INITIATED; SIDE RAILS UP X2, BED LOWERED AND LOCKED. CALL LIGHT WITHIN REACH. WILL CONTINUE TO MONITOR THROUGHOUT THE SHIFT.
[2022-07-29] MEDS: PANTOPRAZOLE 40 MG TABLET.DR PO SCH (08:09)
[2022-07-29] MEDS: THYROID 30 MG TABLET PO SCH (08:10)
[2022-07-29] MEDS: ATORVASTATIN 40 MG TABLET PO SCH (08:10)
[2022-07-29] MEDS: FLUOXETINE HCL 20 MG CAPSULE PO SCH (08:10)
[2022-07-29] MEDS: LISINOPRIL (20MG) 20 MG TABLET PO SCH (08:11)
[2022-07-29] MEDS: methylPREDNISolone SOD SUCC 125 MG/2ML VIAL IV SCH ×2 (08:13→16:58)
[2022-07-29] MEDS: HEPARIN SODIUM, PORCINE 5000 UNITS/1 ML VIAL SQ SCH ×2 (08:15→20:56)
[2022-07-29] MEDS: VANCOMYCIN HCL 0.75 GM in IV D5W 250 ML IV SCH (10:15)
[2022-07-29] MEDS: CEFEPIME 2 GM in IV D5W 100 ML IV SCH (13:27)
--- NOTE | 2022-07-29 18:34 | NUR ---
TRIAGE REGISTER NURSE CLOSING NOTES PATIENT LYING AWAKE IN BED. ALERT AND ORIENTED X4, ON ROOM AIR, AND TOLERATED WELL . NO SIGNS OF RESPIRATORY/CARDIAC DISTRESS NOTED. IV ACCESS AT RFA #20, SALINE LOCKED, PATENT AND INTACT. . WITH FIELD REPRESENTATIVE/HEALTH EDUCATION AND READING OF SR 70 , ALL DUE MEDS ORDERED AND IV ATB GIVEN ORDERED , SEEN BY PHYSICAL THRERAPIST AND WALK WITH FWW AROUND THE HALLWAY . NO COMPLAINTS OF PAIN AT THIS TIME. SAFETY PRECAUTIONS INITIATED; SIDE RAILS UP X2, BED LOWERED AND LOCKED. CALL LIGHT WITHIN REACH. WILL ENDORSED TO NEXT SHIFT .
[2022-07-29 20:00] VITALS: BP 148/72
--- NOTE | 2022-07-29 20:00 | NUR ---
MECHANICAL ASSEMBLY OPENING NOTES RECEIVED PATIENT LYING AWAKE IN BED. ALERT AND ORIENTED X4, ON ROOM AIR, EVEN AND UNLABORED. NO SIGNS OF RESPIRATORY/CARDIAC DISTRESS NOTED. IV ACCESS AT RFA #20, SALINE LOCKED, PATENT AND INTACT. WITH HARP REPAIRER AND READING OF SR HR 70. NO COMPLAINTS OF PAIN AT THIS TIME. SAFETY PRECAUTIONS INITIATED; SIDE RAILS UP X2, BED LOWERED AND LOCKED. CALL LIGHT WITHIN REACH. WILL CONTINUE TO MONITOR THROUGHOUT THE SHIFT.
--- NOTE | 2022-07-29 23:33 | NUR ---
RN NOTE BP TAKEN: 174/81mmhg, HR 105. NO PAIN VERBALIZED. GIVEN HYDRALAZINE 10MG (0.5ML) IV. WILL CONTINUE TO MONITOR PATIENT.
[2022-07-29] MEDS: hydrALAZINE HCL IV 20 MG VIAL IV PRN (23:39)
[2022-07-30 00:02] VITALS: BP 174/81
[2022-07-30] MEDS: IPRATROPIUM NEB FS 0.5 MG/2.5 ML AMPUL.NEB NEB SCH ×7 (00:03→23:30)
--- NOTE | 2022-07-30 00:05 | NUR ---
RN NOTE Latest BP 150/86mmhg. no pain noted. Kept comfortable.
--- NOTE | 2022-07-30 01:32 | NUR ---
RN NOTE PATIENT HAS NON-PRODUCTIVE COUGH STARTED THIS PM. NO DIFFICULTY BREATHING VERBALIZED. NO CRACKLES/. RALES UPON AUSCULTATION THROUGHOUT LUNGS. INFORMED DR. MCFADDEN
--- NOTE | 2022-07-30 03:43 | NUR ---
Pt refused 0330 nebulizer tx. Advised of benefits. States that it makes her cough, and would rather sleep. No S/S or SOB or respiratory distress at this time. RN notified and aware.
[2022-07-30 04:00] VITALS: BP 160/83
--- NOTE | 2022-07-30 04:30 | NUR ---
PATIENTS CURRENT BP 164/90, HR 102. GIVEN PRN HYDRALAZINE 10MG 0.5ML. WILL RE-CHECK BP
[2022-07-30] MEDS: hydrALAZINE HCL IV 20 MG VIAL IV PRN ×2 (04:38→14:44)
[2022-07-30 06:35] LABS: BASOPHILS % (AUTO) 0.1 % (0.0-2.0); HEMATOCRIT 31 % (33-45); HEMOGLOBIN 10.6 g/dL (11.5-14.8); LYMPHOCYTES # (AUTO) 0.6 K/uL (0.8-4.8); LYMPHOCYTES % (AUTO) 2.8 % (20.0-44.0); MEAN CORPUSCULAR HGB CONC 34 g/dl (31.0-36.0); MEAN CORPUSCULAR VOLUME 87 fL (82-100); MONOCYTES # (AUTO) 0.9 K/uL (0.1-1.30); MONOCYTES % (AUTO) 4.3 % (2.0-12.0); NEUTROPHILS % (AUTO) 92.8 % (43.0-81.0); PLATELET COUNT (AUTO) 115 K/uL (150-450); WHITE BLOOD COUNT (AUTO) 21.5 K/uL (4.3-11.0)
--- NOTE | 2022-07-30 06:45 | NUR ---
SLICE CUTTING MACHINE OPERATOR CLOSING NOTES PATIENT LYING ASLEEP IN BED. ALERT AND ORIENTED X4, ON ROOM AIR, AND TOLERATED WELL. IV ACCESS AT RFA #20, SALINE LOCKED, PATENT AND INTACT. ATTACHED TO ALUMINUM BOAT ASSEMBLY SUPERVISOR WITH READING OF SR 70. ALL DUE MEDS GIVEN ORDERED. NO COMPLAINTS OF PAIN AT THIS TIME. SAFETY PRECAUTIONS INITIATED; SIDE RAILS UP X2, BED LOWERED AND LOCKED. CALL LIGHT WITHIN REACH. WILL ENDORSED TO NEXT SHIFT FOR LATHA. Addendum: 07/30/22 at 0649 by TODD LAWRENCE RN [facility] BP 152/70
[2022-07-30 07:15] LABS: ALANINE AMINOTRANSFERASE 23 U/L (12-78); ALBUMIN 2.4 g/dL (3.4-5.0); ALKALINE PHOSPHATASE 66 U/L (46-116); ASPARTATE AMINOTRANSFERASE 15 U/L (15-37); BILIRUBIN,TOTAL 0.7 mg/dL (0.2-1.0); CALCIUM, SERUM 9.2 mg/dL (8.5-10.1); CARBON DIOXIDE 22 mmol/L (21-32); CHLORIDE 106 mmol/L (98-107); CREATININE 1.7 mg/dL (0.6-1.3); GLUCOSE 131 mg/dL (74-106); POTASSIUM 3.5 mmol/L (3.5-5.1); SODIUM SERUM 136 mmol/L (136-145); TOTAL PROTEIN, SERUM 5.3 g/dL (6.4-8.2); UREA NITROGEN, BLOOD 43 mg/dL (7-18)
--- NOTE | 2022-07-30 07:33 | NUR ---
RN OPENING NOTE- PT AWAKE IN BED. ALERT AND ORIENTED X4, ON ROOM AIR, CHEST WITH WHEEZING TO AUSCULTATION, SLIGHT COUGH, NO RHONCHI OR RALES. RT IN ROOM AT BEDSIDE FOR NEB TX, .BS POSITIVE THROUGHOUT. NO DISTENSION, NO GUARDING, , C/.O REFLUX, WILL ADDRESS. IV ACCESS AT RFA #20, INTACT. WITH BRICK CARRIER AND READING OF SR HR 78. DENIES PAIN AT PRESENT. . SAFETY PRECAUTIONS IN PLACE SIDE RAILS UP X2, BED LOWERED AND LOCKED. CALL LIGHT WITHIN REACH. WILL CONTINUE TO MONITOR / ASSIST
[2022-07-30] MEDS: PANTOPRAZOLE 40 MG TABLET.DR PO SCH (08:00)
[2022-07-30] MEDS: THYROID 30 MG TABLET PO SCH (08:00)
[2022-07-30 08:19] VITALS: BP 144/52
[2022-07-30] MEDS: FLUOXETINE HCL 20 MG CAPSULE PO SCH (08:26)
[2022-07-30] MEDS: ATORVASTATIN 40 MG TABLET PO SCH (08:26)
[2022-07-30] MEDS: HEPARIN SODIUM, PORCINE 5000 UNITS/1 ML VIAL SQ SCH ×2 (08:27→21:45)
[2022-07-30] MEDS: methylPREDNISolone SOD SUCC 125 MG/2ML VIAL IV SCH ×2 (08:27→16:45)
[2022-07-30] MEDS: AMLODIPINE BESYLATE 10 MG TABLET PO SCH ×2 (08:31→08:46)
[2022-07-30] MEDS ORDERED: LISINOPRIL (20MG) 20 MG TABLET PO SCH (09:00)
[2022-07-30] MEDS: VANCOMYCIN HCL 0.75 GM in IV D5W 250 ML IV SCH (09:56)
--- NOTE | 2022-07-30 11:16 | NUR ---
RT PT NOT COMFORTABLE, SAID SHE CAN'T BREATHE WELL. SAT 90%. PLACED ON 2 L NC. SAT WENT UP TO 94%. PT FEELS COMFORTABLE. NO RESPIRATORY DISTRESS. WILL CONTINUE TO MONITOR.
[2022-07-30] MEDS: CEFEPIME 2 GM in IV D5W 100 ML IV SCH (13:55)
--- NOTE | 2022-07-30 14:58 | NUR ---
RN NOTE- BP- 180/110, HR - 88 APRESOLINE 10MG IVP ADMINISTERED. RECHECK BP- 154/88, HR - 88
[2022-07-30 16:52] VITALS: BP 154/88
[2022-07-30] MEDS: CALCIUM CARBONATE 500 MG TAB.CHEW PO PRN (17:04)
[2022-07-30] MEDS: HYDROCODONE/APAP 5/325MG TABLET PO PRN (18:09)
--- NOTE | 2022-07-30 18:46 | NUR ---
RN CLOSING NOTE- PT IS AOX4, IN BED AWAKE AND INTERACTIVE, C/O REFLUX AT TIMES, TUMS GIVEN. MIDLINE 18G INSERTED. PT ON ABX THERAPY. CHEST W WHEEZING AND DIMINISHED ON AUSCULTATION, MILD COUGH AT TIMES. CXR SHOWED INFILTRATES. RT ADMINISTERED NEBS TODAY. O2 INITIATED AT 2LPM VIA NC. SATS AT 95%. BED LOCKED, SIDE RAILS UP, CALL LIGHT IN REACH, NEEDS ATTENDED. MONITOR / ASSIST
--- NOTE | 2022-07-30 19:00 | NUR ---
received in bed alert and orientated call light within her reach tv on
[2022-07-30 20:00] VITALS: BP 145/76
[2022-07-30] MEDS: ACETAMINOPHEN 325 MG TABLET PO PRN (21:56)
--- NOTE | 2022-07-30 22:16 | NUR ---
Bladder Scan @ 2200 scanner shows 380 pt states she needs to go pee Voided on the bedpan 150ml clear yellow Bladder scan did after voiding shows 126 ml
--- NOTE | 2022-07-31 01:26 | NUR ---
encourage her to help self Addendum: 07/31/22 at 0126 by JONN SIDDIQUI RN Amended: Sharla added. Addendum: 07/31/22 at 0127 by JONN SIDDIQUI RN Amended: Sharla added. Addendum: 07/31/22 at 0127 by JONN SIDDIQUI RN Amended: Links added. Addendum: 07/31/22 at 0127 by JONN SIDDIQUI RN Amended: Links added. Addendum: 07/31/22 at 0128 by JONN SIDDIQUI RN Amended: Links added. Addendum: 07/31/22 at 0128 by JONN SIDDIQUI RN Amended: Links added.
[2022-07-31] MEDS: IPRATROPIUM NEB FS 0.5 MG/2.5 ML AMPUL.NEB NEB SCH ×6 (03:30→23:46)
--- NOTE | 2022-07-31 04:39 | NUR ---
closing Notes: alert and orientated X$ continent will ask for the bedpab Voided X3 this 12 hours Bladder scanned X! after voding less then 300 ml dressing Left Hip CDI PPP foot warm
[2022-07-31 06:20] LABS: HEMATOCRIT 32 % (33-45); HEMOGLOBIN 10.7 g/dL (11.5-14.8); LYMPHOCYTES # (AUTO) 0.6 K/uL (0.8-4.8); LYMPHOCYTES % (AUTO) 4.7 % (20.0-44.0); MEAN CORPUSCULAR HGB CONC 33 g/dl (31.0-36.0); MEAN CORPUSCULAR VOLUME 88 fL (82-100); MONOCYTES # (AUTO) 0.7 K/uL (0.1-1.30); MONOCYTES % (AUTO) 5.5 % (2.0-12.0); NEUTROPHILS # (AUTO) 11.3 K/uL (1.8-8.9); NEUTROPHILS % (AUTO) 89.8 % (43.0-81.0); PLATELET COUNT (AUTO) 110 K/uL (150-450); RED BLOOD CELL COUNT(AUTO) 3.65 MIL/uL (4.0-5.2); WHITE BLOOD COUNT (AUTO) 12.6 K/uL (4.3-11.0)
[2022-07-31 06:40] LABS: ALANINE AMINOTRANSFERASE 19 U/L (12-78); ALBUMIN 2.3 g/dL (3.4-5.0); ALKALINE PHOSPHATASE 66 U/L (46-116); ASPARTATE AMINOTRANSFERASE 17 U/L (15-37); BILIRUBIN,TOTAL 1.1 mg/dL (0.2-1.0); CARBON DIOXIDE 24 mmol/L (21-32); CHLORIDE 106 mmol/L (98-107); CREATININE 1.5 mg/dL (0.6-1.3); GLUCOSE 125 mg/dL (74-106); POTASSIUM 3.3 mmol/L (3.5-5.1); SODIUM SERUM 137 mmol/L (136-145); TOTAL PROTEIN, SERUM 5.2 g/dL (6.4-8.2); UREA NITROGEN, BLOOD 42 mg/dL (7-18)
[2022-07-31 07:59] VITALS: BP 143/80
[2022-07-31] MEDS ORDERED: POTASSIUM CHLORIDE 20 MEQ TAB.PRT.SR PO SCH (10:00)
[2022-07-31] MEDS: HEPARIN SODIUM, PORCINE 5000 UNITS/1 ML VIAL SQ SCH ×2 (10:11→21:09)
[2022-07-31] MEDS: FLUOXETINE HCL 20 MG CAPSULE PO SCH (10:13)
[2022-07-31] MEDS: ATORVASTATIN 40 MG TABLET PO SCH (10:13)
[2022-07-31] MEDS: LOSARTAN POTASSIUM 50 MG TABLET PO SCH (10:13)
[2022-07-31] MEDS: THYROID 30 MG TABLET PO SCH (10:13)
[2022-07-31] MEDS: PANTOPRAZOLE 40 MG TABLET.DR PO SCH (10:13)
[2022-07-31] MEDS: methylPREDNISolone SOD SUCC 125 MG/2ML VIAL IV SCH ×2 (10:14→16:29)
[2022-07-31] MEDS: AMLODIPINE BESYLATE 10 MG TABLET PO SCH (10:14)
[2022-07-31] MEDS: VANCOMYCIN HCL 0.75 GM in IV D5W 250 ML IV SCH (10:23)
[2022-07-31] MEDS: CEFEPIME 2 GM in IV D5W 100 ML IV SCH (12:14)
[2022-07-31 13:22] LABS: BAND % (MANUAL) 3 % (0.0-5.0); LYMPHOCYTES % (MANUAL) 5 % (16-48); MONOCYTES % (MANUAL) 4 % (0-11.0); NEUTROPHILS % (MANUAL) 88 (42-76)
[2022-07-31 16:00] VITALS: BP 135/76
--- NOTE | 2022-07-31 18:45 | NUR ---
MS RN CLOSING NOTE PATIENT RECEIVED IN BED AND AWAKE. NO S/SX OF PAIN OR DISTRESS OBSERVED OR REPORTED.IV ACCESS TO RIGHT HAND AND [place]OOK[place]-MIDLINE BOTH INTACT AND PATENT. PATIENT RECEIVED IV ANTIBIOTICS X2 ON SHIFT; TOLERATED WELL WITH NO S/SX OF ADVERSE REACTIONS. PATIENT OBSERVED WORKING WITH PHYSICAL THERAPY AND AMBULATED ON UNIT DURING SESSION. TOLERATED WELL. NO S/SX OF URINE RETENTION; CALLED MULTIPLE TIMES FOR USE OF BEDPAN ON SHIFT. SAFETY MEASURES IN TACT WITH BED LOW AND LOCKED. SIDERAIL UP X2 AND CALL LIGHT WITHIN REACH.WILL CONT TO MONITOR.
--- NOTE | 2022-07-31 19:30 | NUR ---
RN OPENING NOTE PATIENT IN BED, EYES CLOSED. EASILY AWAKENED. PATIENT IS ABLE TO MAKE NEEDS KNOWN, A/O X 4. PATIENT IS ON 2 LPM VIA NC, TOLERATING WELL. NO SOB NOTED. PATIENT NOTED TO HAVE DRESSING ON THE L HIP, C/D/I. [place] MIDLINE SALINE LOCK AND R HAND 20 G SALINE LOCK, BOTH PATENT AND INTACT. PATIENT DOES NOT REPORT ANY PAIN. SAFETY MEASURES IN PLACE: BED LOCKED AND IN LOWEST POSITION, CALL LIGHT WITHIN REACH, SIDE RAILS UP. WILL MONITOR PATIENT CLOSELY.
[2022-07-31 20:00] VITALS: BP 130/89
--- NOTE | 2022-07-31 21:00 | NUR ---
RN NOTE BLADDER SCANNER SHOWED A VOLUME OF 334 ML. PATIENT IS CONTINENT AND WOULD LIKE TO JUST KEEP USING THE BEDPAN. CHARGE NURSE VON AWARE.
[2022-08-01] MEDS: IPRATROPIUM NEB FS 0.5 MG/2.5 ML AMPUL.NEB NEB SCH ×6 (03:27→23:39)
[2022-08-01 06:00] LABS: HEMATOCRIT 31 % (33-45); HEMOGLOBIN 10.7 g/dL (11.5-14.8); LYMPHOCYTES # (AUTO) 0.8 K/uL (0.8-4.8); LYMPHOCYTES % (AUTO) 7.5 % (20.0-44.0); MEAN CORPUSCULAR HGB CONC 34 g/dl (31.0-36.0); MEAN CORPUSCULAR VOLUME 87 fL (82-100); MONOCYTES # (AUTO) 0.7 K/uL (0.1-1.30); MONOCYTES % (AUTO) 6.3 % (2.0-12.0); NEUTROPHILS # (AUTO) 9.2 K/uL (1.8-8.9); NEUTROPHILS % (AUTO) 86.2 % (43.0-81.0); PLATELET COUNT (AUTO) 106 K/uL (150-450); RED BLOOD CELL COUNT(AUTO) 3.61 MIL/uL (4.0-5.2); WHITE BLOOD COUNT (AUTO) 10.7 K/uL (4.3-11.0)
[2022-08-01 06:41] LABS: MAGNESIUM 1.9 mg/dL (1.8-2.4); PHOSPHORUS 3.2 mg/dL (2.5-4.9)
[2022-08-01 07:04] LABS: ALANINE AMINOTRANSFERASE 22 U/L (12-78); ALBUMIN 2.3 g/dL (3.4-5.0); ALKALINE PHOSPHATASE 61 U/L (46-116); ASPARTATE AMINOTRANSFERASE 17 U/L (15-37); BILIRUBIN,TOTAL 1.3 mg/dL (0.2-1.0); CARBON DIOXIDE 23 mmol/L (21-32); CHLORIDE 106 mmol/L (98-107); CREATININE 1.4 mg/dL (0.6-1.3); GLUCOSE 131 mg/dL (74-106); POTASSIUM 3.1 mmol/L (3.5-5.1); SODIUM SERUM 139 mmol/L (136-145); TOTAL PROTEIN, SERUM 5.1 g/dL (6.4-8.2); UREA NITROGEN, BLOOD 42 mg/dL (7-18)
[2022-08-01] MEDS: MORPHINE SULFATE INJ 2 MG/ML DISP.SYRIN IV PRN (07:05)
--- NOTE | 2022-08-01 07:25 | NUR ---
MS RN OPENING NOTE RECEIVED PT AWAKE AND RESTING IN BED. PT A/O X4, ABLE TO MAKE NEEDS KNOWN. ON O2 AT 2L/MIN VIA NASAL CANNULA, TOLERATING WELL. NO SOB NOTED. NOT IN ANY SIGN OF RESPIRATORY DISTRESS. IV ACCESS IN [place] MIDLINE AND RIGHT HAND G#20 BOTH SALINE LOCK, INTACT AND PATENT. SAFETY MEASURES IN PLACE: BED IN LOWEST AND LOCKED POSITION, SIDE RAILS UPX2, AND CALL LIGHT WITHIN REACH. WILL CONTINUE TO MONITOR PT.
--- NOTE | 2022-08-01 07:45 | NUR ---
PATIENT NOT IN ANY APPARENT DISTRESS, GAVE MORPHINE 2 MG IV FOR PAIN 05/02. PATIENT BLADDER SCANNED AND SHOWED >360 VOLUME. INFORMED PATIENT AGAIN REGARDING INSERTING A MENENDEZ IN, PATIENT REFUSES IT AT THIS TIME AND WOULD LIKE TO KEEP URINATED WITH THE BEDPAN OR TRY TO WALK TO BATHROOM TODAY. ENDORSED CARE TO DAY SHIFT RN.
[2022-08-01 08:00] VITALS: BP 135/94
[2022-08-01] MEDS: THYROID 30 MG TABLET PO SCH (08:17)
[2022-08-01] MEDS: PANTOPRAZOLE 40 MG TABLET.DR PO SCH (08:17)
[2022-08-01] MEDS: ATORVASTATIN 40 MG TABLET PO SCH (08:39)
[2022-08-01] MEDS: methylPREDNISolone SOD SUCC 125 MG/2ML VIAL IV SCH ×2 (08:40→17:29)
[2022-08-01] MEDS: LOSARTAN POTASSIUM 50 MG TABLET PO SCH (08:40)
[2022-08-01] MEDS: AMLODIPINE BESYLATE 10 MG TABLET PO SCH (08:40)
[2022-08-01] MEDS: FLUOXETINE HCL 20 MG CAPSULE PO SCH (08:41)
[2022-08-01] MEDS: HEPARIN SODIUM, PORCINE 5000 UNITS/1 ML VIAL SQ SCH ×2 (08:42→21:18)
[2022-08-01] MEDS ORDERED: POTASSIUM CHLORIDE 20 MEQ TAB.PRT.SR PO SCH (10:00)
[2022-08-01] MEDS: VANCOMYCIN HCL 0.75 GM in IV D5W 250 ML IV SCH (10:34)
[2022-08-01] MEDS: CEFEPIME 2 GM in IV D5W 100 ML IV SCH (12:32)
[2022-08-01 17:13] LABS: BAND % (MANUAL) 7 % (0.0-5.0); BASOPHILS % (MANUAL) 0 % (0.0-2.0); EOSINOPHILS % (MANUAL) 0 % (0-4); LYMPHOCYTES % (MANUAL) 9 % (16-48); MONOCYTES % (MANUAL) 5 % (0-11.0); NEUTROPHILS % (MANUAL) 79 (42-76)
--- NOTE | 2022-08-01 19:00 | NUR ---
RN NOTE MADE ROSETTE WRIGHT AWARE OF PT'S OUTPUT AND POST BLADDER SCAN AFTER EVERY URINATION. AT 0930, OUTPUT IS 100CC, BLADDER SCAN 148, 1330, OUTPUT IS 200CC, BLADDER SCAN 150, 1530, OUTPUT IS 200CC, BLADDER SCAN 160, 1700, OUTPUT IS 150CC, BLADDER SCAN 198, AND 1830, OUTPUT IS 200CC, BLADDER SCAN 140. PER ROSETTE WRIGHT TO INSERT A MENENDEZ. ENDORSED TO FINAL CANOE INSPECTOR NURSEWARREN RN.
--- NOTE | 2022-08-01 19:20 | NUR ---
MS RN OPENING NOTE RECEIVED PATIENT IN BED, AWAKE. PATIENT IS A/O X 4, ABLE TO MAKE NEEDS KNOWN. ON O2 2 LPM VIA NC, TOLERATING O2 WELL. NO SOB NOTED. PATIENT HAS DRESSING TO LEFT HIP, C/D/I. LEFT UA MIDLINE SALINE LOCKED AND RIGHT HAND 20 G SALINE LOCKED, BOTH PATENT AND INTACT. NO C/O PAIN, OR DISO . SAFETY MEASURES IN PLACE: BED LOCKED AND IN LOWEST POSITION, CALL LIGHT WITHIN REACH, SIDE RAILS UP. WILL MONITOR PATIENT CLOSELY.
--- NOTE | 2022-08-01 19:44 | NUR ---
MS RN CLOSING NOTE PT AWAKE AND RESTING IN BED. PT A/O X4, ABLE TO MAKE NEEDS KNOWN. ON O2 AT 1L/MIN VIA NASAL CANNULA, TOLERATING WELL. NO SOB NOTED. NOT IN ANY SIGN OF RESPIRATORY DISTRESS. IV ACCESS IN [place] MIDLINE AND RIGHT HAND G#20 BOTH SALINE LOCK, INTACT AND PATENT. ALL NEEDS ATTENDED. KEPT CLEAN AND COMFORTABLE. SAFETY MEASURES IN PLACE: BED IN LOWEST AND LOCKED POSITION, SIDE RAILS UPX2, AND CALL LIGHT WITHIN REACH. ENDORSED TO MANAGER OF COMPENSATION NURSE FOR LATHA.
[2022-08-01 20:00] VITALS: BP 118/63
--- NOTE | 2022-08-01 22:00 | NUR ---
MS RN NOTE MD ORDERED TO INSERT MENENDEZ CATHETER. MENENDEZ CATHETER INSERTED, 500 ML OF DARK YELLOW URINE WITH NO ODOR OUT.
[2022-08-02] MEDS: IPRATROPIUM NEB FS 0.5 MG/2.5 ML AMPUL.NEB NEB SCH ×5 (03:30→19:59)
[2022-08-02 06:55] LABS: ALANINE AMINOTRANSFERASE 22 U/L (12-78); ALBUMIN 2.2 g/dL (3.4-5.0); ALKALINE PHOSPHATASE 63 U/L (46-116); ASPARTATE AMINOTRANSFERASE 15 U/L (15-37); BILIRUBIN,TOTAL 1.5 mg/dL (0.2-1.0); CALCIUM, SERUM 8.6 mg/dL (8.5-10.1); CARBON DIOXIDE 26 mmol/L (21-32); CHLORIDE 105 mmol/L (98-107); CREATININE 1.4 mg/dL (0.6-1.3); GLUCOSE 148 mg/dL (74-106); MAGNESIUM 1.7 mg/dL (1.8-2.4); PHOSPHORUS 2.9 mg/dL (2.5-4.9); POTASSIUM 3.1 mmol/L (3.5-5.1); SODIUM SERUM 138 mmol/L (136-145); TOTAL PROTEIN, SERUM 4.9 g/dL (6.4-8.2); UREA NITROGEN, BLOOD 42 mg/dL (7-18)
--- NOTE | 2022-08-02 07:29 | NUR ---
MS RN CLOSING NOTE PT STILL RESTING IN BED. PT A/O X4, ABLE TO MAKE NEEDS KNOWN. ON O2 AT 1L/MIN VIA NASAL CANNULA, TOLERATING WELL. NO SOB NOTED. NO S/S OF RESPIRATORY DISTRESS. IV ACCESS IN L UA MIDLINE AND RIGHT HAND G#20 BOTH SALINE LOCK, INTACT AND PATENT. PT HAS FC DRAINING DARK YELLOW URINE, 800 ML OF URINE EMPTIED. ALL NEEDS ATTENDED. KEPT CLEAN AND COMFORTABLE. SAFETY MEASURES IN PLACE: BED IN LOWEST AND LOCKED POSITION, SIDE RAILS UPX2, AND CALL LIGHT WITHIN REACH. ENDORSED TO AM SHIFT NURSE FOR LATHA.
--- NOTE | 2022-08-02 07:37 | NUR ---
RN NOTES RECEIVED PATIENT AWAKE IN BED. PATIENT IS A/O TIMES 4. NO PAIN NOTED. NO SOB NOTED NO DISTRESS NOTED. IV ACCESS ON THE [place] MID LINE AND RIGHT HAND G# 20 INTACT . S/P OF THE LEFT HIP ORIF AT 07/27. ALL NEEDS ATTENDED. MENENDEZ CATHETER INTACT AND DRAINING YELLOW COLOR URINE. ALL SAFETY MEASURES IN PLACE. BED LOCKED IN THE LOWEST POSITION BED ALARM ON. CALL LIGHT AND TABLE IN EASY REACH. WILL CONTINUE TO MONITOR CLOSELY.
[2022-08-02] MEDS: THYROID 30 MG TABLET PO SCH (07:58)
[2022-08-02] MEDS: PANTOPRAZOLE 40 MG TABLET.DR PO SCH (07:58)
[2022-08-02 08:00] VITALS: BP 137/79
[2022-08-02] MEDS: ATORVASTATIN 40 MG TABLET PO SCH (08:51)
[2022-08-02] MEDS: methylPREDNISolone SOD SUCC 125 MG/2ML VIAL IV SCH ×2 (08:51→16:43)
[2022-08-02] MEDS: POTASSIUM CHLORIDE 20 MEQ TAB.PRT.SR PO SCH ×3 (08:52→11:15)
[2022-08-02] MEDS: AMLODIPINE BESYLATE 10 MG TABLET PO SCH (08:52)
[2022-08-02] MEDS: FLUOXETINE HCL 20 MG CAPSULE PO SCH (08:52)
[2022-08-02] MEDS: HEPARIN SODIUM, PORCINE 5000 UNITS/1 ML VIAL SQ SCH ×2 (08:54→20:52)
[2022-08-02] MEDS: Magnesium 1GM/D5W 100ML PREMIX 100 ML IV SCH ×2 (09:02→12:55)
[2022-08-02] MEDS: LOSARTAN POTASSIUM 50 MG TABLET PO SCH (09:03)
[2022-08-02 10:01] LABS: HEMATOCRIT 30 % (33-45); LYMPHOCYTES # (AUTO) 0.6 K/uL (0.8-4.8); LYMPHOCYTES % (AUTO) 5.4 % (20.0-44.0); MEAN CORPUSCULAR HGB CONC 33 g/dl (31.0-36.0); MEAN CORPUSCULAR VOLUME 88 fL (82-100); MONOCYTES # (AUTO) 0.8 K/uL (0.1-1.30); MONOCYTES % (AUTO) 7.2 % (2.0-12.0); NEUTROPHILS # (AUTO) 9.7 K/uL (1.8-8.9); NEUTROPHILS % (AUTO) 87.4 % (43.0-81.0); PLATELET COUNT (AUTO) 101 K/uL (150-450); RED BLOOD CELL COUNT(AUTO) 3.46 MIL/uL (4.0-5.2); WHITE BLOOD COUNT (AUTO) 11.1 K/uL (4.3-11.0)
[2022-08-02] MEDS: VANCOMYCIN HCL 0.75 GM in IV D5W 250 ML IV SCH (10:44)
[2022-08-02] MEDS ORDERED: LOSA50TA39 PO (11:35)
[2022-08-02] MEDS ORDERED: CEFE2FRO IV (11:35)
[2022-08-02] MEDS ORDERED: METH32TA2 PO (11:35)
[2022-08-02] MEDS ORDERED: Hydrocodone/Apap 5/325MG PO (11:35)
[2022-08-02] MEDS: CEFEPIME 2 GM in IV D5W 100 ML IV SCH (12:13)
--- NOTE | 2022-08-02 13:57 | NUR ---
RN NOTES CHECKED PATIENT'S MEDICATION LIST DID NOT SEE ANY BLOOD THINNERS. INFORMED COMPLIANCE MANAGER KYLE FOR CLARIFICATION. SHE WILL FOLLOW UP WITH THE BLOOD THINNER ORDER.
[2022-08-02 16:00] VITALS: BP 121/63
--- NOTE | 2022-08-02 19:30 | NUR ---
MS RN OPENING NOTES RECEIVED PATIENT LAYING IN BED AWAKE. A/O X4. BREATHING EVEN AND NON-LABORED ON ROOM AIR. NOT IN APPARENT DISTRESS. DENIES PAIN AT THIS TIME. HAS RIGHT HAND IV ACCESS #20G AND LEFT UPPER ARM MIDLINE, BOTH SALINE LOCKED. NO S/S OF INFILTRATION NOTED. LEFT HIP SX DRESSING C/D/I. HAS INDWELLING MENENDEZ CATHETER DRAINING CLEAR YELLOW URINE TO BAG BY GRAVITY. PATIENT WILL BE DISCHARGED TOMORROW D/T TRANSPORTATION ISSUE. SAFETY PRECAUTIONS IN PLACE: BED LOW AND LOCKED, SIDE RAILS UP X2, CALL LIGHT WITHIN REACH. WILL CONTINUE POC.
[2022-08-02 20:00] VITALS: BP 131/72
--- NOTE | 2022-08-02 20:10 | NUR ---
MS RN NOTES CALLED DAREN (FRIEND) AT [phone], CONFIRMED SHE CAN PICK-UP THE PATIENT AND PROVIDE TRANSPORTATION TOMORROW AFTER 1100.
--- NOTE | 2022-08-02 20:13 | NUR ---
RN CLOSING NOTES PATIENT AWAKE IN BED. PATIENT IS A/O TIMES 4. NO PAIN NOTED. NO SOB NOTED NO DISTRESS NOTED. IV ACCESS ON THE [place] MID LINE AND RIGHT HAND G# 20 INTACT . S/P OF THE LEFT HIP ORIF AT 07/27. ALL NEEDS ATTENDED. MENENDEZ CATHETER INTACT AND DRAINING YELLOW COLOR URINE. OUT PUT 900 ML.ALL DUE MEDS GIVEN ORDERED. ALL SAFETY MEASURES IN PLACE. BED LOCKED IN THE LOWEST POSITION BED ALARM ON. CALL LIGHT AND TABLE IN EASY REACH. AWAITING TO BE DISCHARGE TOMORROW. WILL ENDORSE FOR LATHA.
[2022-08-03] MEDS: IPRATROPIUM NEB FS 0.5 MG/2.5 ML AMPUL.NEB NEB SCH ×4 (00:03→11:12)
--- NOTE | 2022-08-03 01:42 | NUR ---
RT PT RECVD AWAKE AND VERBAL ON ROOM AIR. NO SOB OR RESPIRATORY DISTRESS NOTED. SPO2 >92%. NEB TX GIVEN AND JAYJAY WELL.
[2022-08-03 04:13] LABS: BAND % (MANUAL) 1 % (0.0-5.0); LYMPHOCYTES % (MANUAL) 8 % (16-48); MONOCYTES % (MANUAL) 6 % (0-11.0); NEUTROPHILS % (MANUAL) 85 (42-76)
[2022-08-03 06:01] LABS: EOSINOPHILS % (AUTO) 0.2 % (0.0-6.0); HEMATOCRIT 30 % (33-45); HEMOGLOBIN 10.4 g/dL (11.5-14.8); LYMPHOCYTES # (AUTO) 0.9 K/uL (0.8-4.8); LYMPHOCYTES % (AUTO) 6.8 % (20.0-44.0); MEAN CORPUSCULAR HGB CONC 34 g/dl (31.0-36.0); MEAN CORPUSCULAR VOLUME 87 fL (82-100); MONOCYTES # (AUTO) 1.1 K/uL (0.1-1.30); MONOCYTES % (AUTO) 8.9 % (2.0-12.0); NEUTROPHILS # (AUTO) 10.8 K/uL (1.8-8.9); NEUTROPHILS % (AUTO) 84.1 % (43.0-81.0); PLATELET COUNT (AUTO) 105 K/uL (150-450); WHITE BLOOD COUNT (AUTO) 12.8 K/uL (4.3-11.0)
--- NOTE | 2022-08-03 06:23 | NUR ---
MS RN CLOSING NOTES PATIENT LAYING IN BED AWAKE. A/O X4. ABLE TO VERBALIZE NEEDS. NO SOB OR NOTED ON ROOM AIR. NO PAIN OR DISCOMFORT NOTED. AFEBRILE. HAS LEFT UPPER ARM MIDLINE AND SALINE LOCKED. INTACT, PATENT AND FLUSHING. LEFT HIP SX DRESSING C/D/I. URINE OUTPUT OF 780 ML. NO SEDIMENTS OR BLOOD NOTED. ALL DUE MEDS GIVEN AND NEEDS ATTENDED. SAFETY PRECAUTIONS MAINTAINED. WILL ENDORSE TO NEXT SHIFT FOR LATHA.
[2022-08-03 06:47] LABS: ALANINE AMINOTRANSFERASE 32 U/L (12-78); ALBUMIN 2.3 g/dL (3.4-5.0); ALKALINE PHOSPHATASE 68 U/L (46-116); ASPARTATE AMINOTRANSFERASE 24 U/L (15-37); BILIRUBIN,TOTAL 1.6 mg/dL (0.2-1.0); CALCIUM, SERUM 8.7 mg/dL (8.5-10.1); CARBON DIOXIDE 23 mmol/L (21-32); CHLORIDE 104 mmol/L (98-107); CREATININE 1.3 mg/dL (0.6-1.3); GLUCOSE 125 mg/dL (74-106); PHOSPHORUS 2.5 mg/dL (2.5-4.9); POTASSIUM 3.9 mmol/L (3.5-5.1); SODIUM SERUM 135 mmol/L (136-145); UREA NITROGEN, BLOOD 41 mg/dL (7-18)
[2022-08-03 07:00] VITALS: BP 137/81
[2022-08-03] MEDS: THYROID 30 MG TABLET PO SCH (08:06)
[2022-08-03] MEDS: PANTOPRAZOLE 40 MG TABLET.DR PO SCH (08:06)
[2022-08-03] MEDS: ATORVASTATIN 40 MG TABLET PO SCH (08:42)
[2022-08-03] MEDS: FLUOXETINE HCL 20 MG CAPSULE PO SCH (08:42)
[2022-08-03] MEDS: methylPREDNISolone SOD SUCC 125 MG/2ML VIAL IV SCH (08:42)
[2022-08-03 08:43] VITALS: BP 137/81
[2022-08-03] MEDS: LOSARTAN POTASSIUM 50 MG TABLET PO SCH (08:43)
[2022-08-03] MEDS: AMLODIPINE BESYLATE 10 MG TABLET PO SCH (08:43)
[2022-08-03] MEDS: VANCOMYCIN HCL 0.75 GM in IV D5W 250 ML IV SCH (09:51)
--- NOTE | 2022-08-03 12:00 | NUR ---
RN NOTES DISCHARGE PATIENT IN STABLE CONDITION WITH STABLE VITAL SIGNS. NO PAIN NOTED. NO SOB NOTED. NO DISTRESS NOTED. ALL THE DISCHARGE INSTRUCTIONS GIVEN TO THE PATIENT. PATIENT VERBALIZED UNDERSTANDING. ALL THE BELONGINGS ACCOUNTED AND SIGNED FOR. MENENDEZ CATHETER IN PLACE PER SEISMOGRAPH OBSERVER KYLE. [place] MIDLINE IN PLACE FOR CONTINUATION OF THE ATB AT HOME. ALL NEEDS ATTENDED.[facility] AT 1230 IN STABLE CONDITION. MD AND CHARGE NURSE AWARE OF THE DISCHARGE.
[2022-08-03 12:10] LABS: BAND % (MANUAL) 3 % (0.0-5.0); LYMPHOCYTES % (MANUAL) 6 % (16-48); MONOCYTES % (MANUAL) 8 % (0-11.0); NEUTROPHILS % (MANUAL) 83 (42-76)
== END 2022-08-03 13:17 | disposition home health service (06) | DRG 480 ==
LOC: ER 13:31 → MED 17:29 → ICU 07-26 17:49 → TELE 07-28 13:44 → MED 07-30 22:42
PROVIDERS: ADMIT Internal Medicine; ATTEND Registered Nurse
PROC: 0QS734Z Reposition Left Upper Femur with Internal Fixation Device, Percutaneous Approach (ICD-10-PCS; principal; 2022-07-26)
PROC: 5A09357 Assistance with Respiratory Ventilation, Less than 24 Consecutive Hours, Continuous Positive Airway Pressure (ICD-10-PCS; 2022-07-26)
PROC: 05HA33Z Insertion of Infusion Device into Left Brachial Vein, Percutaneous Approach (ICD-10-PCS; 2022-08-03)
DX: S72.012A Unspecified intracapsular fracture of left femur, initial encounter for closed fracture (principal); A41.9 Sepsis, unspecified organism; N17.0 Acute kidney failure with tubular necrosis; R65.21 Severe sepsis with septic shock; J69.0 Pneumonitis due to inhalation of food and vomit; J96.01 Acute respiratory failure with hypoxia; J96.02 Acute respiratory failure with hypercapnia; I13.0 Hypertensive heart and chronic kidney disease with heart failure and stage 1 through stage 4 chronic kidney disease, or unspecified chronic kidney disease; E87.20 Acidosis, unspecified; E87.1 Hypo-osmolality and hyponatremia; W01.0XXA Fall on same level from slipping, tripping and stumbling without subsequent striking against object, initial encounter; E03.9 Hypothyroidism, unspecified; E83.42 Hypomagnesemia; W19.XXXA Unspecified fall, initial encounter; I50.9 Heart failure, unspecified; N18.9 Chronic kidney disease, unspecified; F32.A Depression, unspecified; Z85.07 Personal history of malignant neoplasm of pancreas; Z98.890 Other specified postprocedural states; Z79.899 Other long term (current) drug therapy; Z79.01 Long term (current) use of anticoagulants; Y92.015 Private garage of single-family (private) house as the place of occurrence of the external cause; Z90.411 Acquired partial absence of pancreas; Z87.891 Personal history of nicotine dependence; I48.0 Paroxysmal atrial fibrillation; E88.09 Other disorders of plasma-protein metabolism, not elsewhere classified; E78.5 Hyperlipidemia, unspecified; D64.9 Anemia, unspecified; E87.6 Hypokalemia; J44.9 Chronic obstructive pulmonary disease, unspecified; D72.829 Elevated white blood cell count, unspecified; T38.0X5A Adverse effect of glucocorticoids and synthetic analogues, initial encounter; Y92.9 Unspecified place or not applicable
CPT/HCPCS: 36410; 36415; 36600; 71045-TC; 73020; 73502; 76770-TC; 80048-TC; 80053-TC; 80202-TC; 81001; 82248-TC; 82570-TC; 82803-TC; 83605-TC; 83735-TC; 84100-TC; 84300-TC; 85025-TC; 85610-TC; 85730-TC; 87040-TC; 87081-TC; 87086-TC; 92526; 92611-TC; 93307-TC; 94760-TC; 94799-TC; 97112-TC; 97116-TC; 97530-TC; 97535-TC; A6209; C1713; C1769; G0378; J0360; J0690; J0692; J1644; J2270; J2310; J2405; J2704; J2765; J2930; J3010; J3370; J3475; J3490; J7030; J7040; J7050; J7060

== ENCOUNTER 2023-05-03 10:03 | Emergency (ER) | payer MEDICARE ==
[~2023-05-03] VITALS: Ht 152.4 cm; Wt 59.0 kg
[~2023-05-03 10:03] MED LIST changes: -APIX5TAB PO; -BUPR150T10 PO; +CEFE2FRO IV; +CHLO25TA2 PO; -DIPH1TAB28 PO; -DRON400T6 PO; +FLUO40CA49 PO; +Hydrocodone/Apap 5/325MG PO; -LIPA1CAP36 PO; +LISI40TA13 PO; +METH32TA2 PO; +ROSU40TA23 PO
[2023-05-03] MEDS ORDERED: ONDANSETRON HCL/PF 4 MG/2 ML VIAL IV ONE (10:30)
[2023-05-03] MEDS ORDERED: FAMOTIDINE/PF INJ 20 MG/2 ML VIAL IV ONE ×2 (10:30→10:37)
[2023-05-03] MEDS ORDERED: IV NS 0.9% 1,000 ML IV ONE (10:30)
[2023-05-03] MEDS ORDERED: MORPHINE SULFATE INJ 2 MG/ML DISP.SYRIN IV ONE ×2 (10:30→14:00)
[2023-05-03] MEDS ORDERED: MORPHINE SULFATE INJ 4 MG/ML DISP.SYRIN ONE (10:37)
[2023-05-03] MEDS ORDERED: ONDANSETRON HCL/PF 4 MG/2 ML VIAL ONE (10:37)
[2023-05-03 10:41] LABS: BASOPHILS # (AUTO) 0.1 K/uL (0.0-0.2); BASOPHILS % (AUTO) 0.7 % (0.0-2.0); EOSINOPHILS # (AUTO) 0.1 K/uL (0.0-0.7); EOSINOPHILS % (AUTO) 1.1 % (0.0-6.0); HEMATOCRIT 33 % (33-45); HEMOGLOBIN 11.3 g/dL (11.5-14.8); LYMPHOCYTES # (AUTO) 1.1 K/uL (0.8-4.8); MEAN CORPUSCULAR HEMOGLOBIN 26 PG (26.0-33.0); MEAN CORPUSCULAR HGB CONC 34 g/dl (31.0-36.0); MEAN CORPUSCULAR VOLUME 78 fL (82-100); MONOCYTES # (AUTO) 0.7 K/uL (0.1-1.30); MONOCYTES % (AUTO) 7.2 % (2.0-12.0); NEUTROPHILS # (AUTO) 7.9 K/uL (1.8-8.9); PLATELET COUNT (AUTO) 219 K/uL (150-450); RED BLOOD CELL COUNT(AUTO) 4.26 MIL/uL (4.0-5.2); RED CELL DISTRIBUTION WIDTH 17.2 % (11.5-15.0); WHITE BLOOD COUNT (AUTO) 9.9 K/uL (4.3-11.0)
[2023-05-03 11:04] LABS: ALANINE AMINOTRANSFERASE 27 U/L (12-78); ALKALINE PHOSPHATASE 115 U/L (46-116); ASPARTATE AMINOTRANSFERASE 23 U/L (15-37); BILIRUBIN,DIRECT 0.2 mg/dL (0.0-0.2); CHLORIDE 100 mmol/L (98-107); CREATININE 1.9 mg/dL (0.6-1.3); GLUCOSE 160 mg/dL (74-106); SODIUM SERUM 135 mmol/L (136-145); TOTAL PROTEIN, SERUM 7.2 g/dL (6.4-8.2); UREA NITROGEN, BLOOD 42 mg/dL (7-18)
[2023-05-03 11:17] LABS: BILIRUBIN,TOTAL 0.7 mg/dL (0.2-1.0); CARBON DIOXIDE 20 mmol/L (21-32)
[2023-05-03 11:22] LABS: ALBUMIN 3.7 g/dL (3.4-5.0)
[2023-05-03 11:29] LABS: LIPASE < 10 U/L (73-393)
[2023-05-03] MEDS ORDERED: ONDA4TAB5 PO (13:04)
[2023-05-03] MEDS ORDERED: AMOX-430 PO (13:04)
[2023-05-03] MEDS ORDERED: HYDR-4303 PO (13:04)
[2023-05-03 13:27] LABS: APPEARANCE,URINE CLEAR (CLEAR); BILIRUBIN,URINE NEGATIVE (NEGATIVE); BLOOD, URINE TRACE-INTA Ery/uL (NEGATIVE); COLOR,URINE YELLOW (YELLOW); KETONES,URINE NEGATIVE (NEGATIVE); LEUKOCYTE ESTERASE ,URINE NEGATIVE (NEGATIVE); NITRITE, URINE NEGATIVE (NEGATIVE); PROTEIN,URINE NEGATIVE (NEGATIVE); UGLUCOSE NEGATIVE (NEGATIVE); UROBILINOGEN,URINE 0.2 EU/dL (0.2)
[2023-05-03] MEDS ORDERED: POTASSIUM CHLORIDE 20 MEQ TAB.PRT.SR PO ONE ×2 (13:29→13:30)
[2023-05-03] MEDS ORDERED: MORPHINE SULFATE INJ 2 MG/ML DISP.SYRIN ONE (13:39)
[2023-05-03 14:12] VITALS: BP 117/99; TEMP 98; O2SAT 93
== END 2023-05-03 14:13 | disposition home or self-care (01) ==
LOC: ER 10:06
DX: K52.9 Noninfective gastroenteritis and colitis, unspecified (principal); R10.13 Epigastric pain; R11.2 Nausea with vomiting, unspecified; I48.20 Chronic atrial fibrillation, unspecified; K86.89 Other specified diseases of pancreas; E87.6 Hypokalemia; I12.9 Hypertensive chronic kidney disease with stage 1 through stage 4 chronic kidney disease, or unspecified chronic kidney disease; N18.9 Chronic kidney disease, unspecified; E78.5 Hyperlipidemia, unspecified; E03.9 Hypothyroidism, unspecified; Z60.2 Problems related to living alone; Z79.899 Other long term (current) drug therapy
CPT/HCPCS: 99285; 74176; 96374; 71045; 96375; 96361; 93005 ×2; 96376; 85025; 80048; 83690; 80076; 81003; 36415; 84484; J2270 ×2; J3490; J2405; J7030; J7040

== ENCOUNTER 2023-05-05 00:46 | Inpatient (IN) | payer MEDICARE ==
[~2023-05-05] VITALS: Ht 160 cm; Wt 59.9 kg
[2023-05-05] VITALS (28 sets, daily range): BP systolic 40–131; BP diastolic 27–96; TEMP 95.5–97.6; O2SAT 66–100
[~2023-05-05 00:46] MED LIST changes: +AMOX-430 PO; +HYDR-4303 PO; +ONDA4TAB5 PO
[2023-05-05] MEDS ORDERED: MORPHINE SULFATE INJ 2 MG/ML DISP.SYRIN IV ONE (01:00)
[2023-05-05] MEDS ORDERED: MORPHINE SULFATE INJ 4 MG/ML DISP.SYRIN ONE (01:06)
[2023-05-05 01:27] LABS: BASOPHILS % (AUTO) 0.1 % (0.0-2.0); EOSINOPHILS % (AUTO) 0.1 % (0.0-6.0); HEMATOCRIT 37 % (33-45); HEMOGLOBIN 12.1 g/dL (11.5-14.8); LYMPHOCYTES # (AUTO) 0.2 K/uL (0.8-4.8); LYMPHOCYTES % (AUTO) 2.6 % (20.0-44.0); MEAN CORPUSCULAR HEMOGLOBIN 26 PG (26.0-33.0); MEAN CORPUSCULAR HGB CONC 33 g/dl (31.0-36.0); MEAN CORPUSCULAR VOLUME 80 fL (82-100); MONOCYTES # (AUTO) 0.5 K/uL (0.1-1.30); NEUTROPHILS # (AUTO) 8.7 K/uL (1.8-8.9); NEUTROPHILS % (AUTO) 92.2 % (43.0-81.0); PLATELET COUNT (AUTO) 209 K/uL (150-450); RED BLOOD CELL COUNT(AUTO) 4.66 MIL/uL (4.0-5.2); RED CELL DISTRIBUTION WIDTH 17.4 % (11.5-15.0); WHITE BLOOD COUNT (AUTO) 9.4 K/uL (4.3-11.0)
[2023-05-05 01:34] LABS: CALCIUM, SERUM 9.2 mg/dL (8.5-10.1); CARBON DIOXIDE 16 mmol/L (21-32); CHLORIDE 96 mmol/L (98-107); CREATININE 3.6 mg/dL (0.6-1.3); GLUCOSE 159 mg/dL (74-106); POTASSIUM 3.7 mmol/L (3.5-5.1); SODIUM SERUM 132 mmol/L (136-145); UREA NITROGEN, BLOOD 63 mg/dL (7-18)
[2023-05-05 01:39] LABS: ALANINE AMINOTRANSFERASE 26 U/L (12-78); ALBUMIN 3.4 g/dL (3.4-5.0); ALKALINE PHOSPHATASE 102 U/L (46-116); ASPARTATE AMINOTRANSFERASE 46 U/L (15-37); BILIRUBIN,DIRECT 0.4 mg/dL (0.0-0.2); BILIRUBIN,TOTAL 1.1 mg/dL (0.2-1.0); TOTAL PROTEIN, SERUM 7.6 g/dL (6.4-8.2)
[2023-05-05 01:49] LABS: LIPASE < 10 U/L (73-393)
[2023-05-05] MEDS ORDERED: IOHEXOL-300 100 ML VIAL IV ONE (01:51)
[2023-05-05] MEDS ORDERED: HYDROMORPHONE 1 MG/1 ML DISP.SYRIN ONE ×2 (01:52→06:05)
[2023-05-05] MEDS ORDERED: HYDROMORPHONE 1 MG/1 ML DISP.SYRIN IV ONE ×2 (02:00→06:00)
[2023-05-05] MEDS ORDERED: IV NS 0.9% 1,000 ML IV PRN ×2 (02:00→04:00)
[2023-05-05] MEDS ORDERED: MAGNESIUM HYDROXIDE 30 ML UDC PO PRN (04:00)
[2023-05-05] MEDS ORDERED: MAG HYDROX/AL HYDROX/SIMETH 30 ML UDC PO PRN (04:00)
[2023-05-05] MEDS ORDERED: ACETAMINOPHEN 325 MG TABLET PO PRN (04:00)
[2023-05-05] MEDS ORDERED: ONDANSETRON HCL/PF 4 MG/2 ML VIAL IVP PRN (04:00)
[2023-05-05] MEDS ORDERED: Z GUARD REMEDY 4 OZ OINT TP PRN (04:00)
[2023-05-05] MEDS ORDERED: HYDROCODONE/APAP 5/325MG TABLET PO PRN ×2 (04:00→06:30)
[2023-05-05] MEDS ORDERED: ZOLPIDEM TARTRATE 5 MG TABLET PO PRN (04:00)
[2023-05-05] MEDS ORDERED: MORPHINE SULFATE INJ 2 MG/ML DISP.SYRIN IV PRN (04:00)
[2023-05-05] MEDS ORDERED: DILT-4 PO (07:29)
[2023-05-05] MEDS ORDERED: ERGO500040 PO (07:29)
[2023-05-05] MEDS ORDERED: POTA10CA43 PO (07:29)
[2023-05-05] MEDS ORDERED: FURO-144 PO (07:29)
[2023-05-05] MEDS ORDERED: METO5TAB7 PO (07:29)
[2023-05-05] MEDS ORDERED: ROPI0.5T4 PO (07:29)
[2023-05-05] MEDS ORDERED: METO25TA6 PO (07:29)
[2023-05-05] MEDS ORDERED: THYROID 30 MG TABLET PO SCH (07:30)
[2023-05-05] MEDS: FLUOXETINE HCL 20 MG CAPSULE PO SCH ×2 (09:00→10:02)
[2023-05-05] MEDS ORDERED: LOSARTAN POTASSIUM 50 MG TABLET PO SCH (09:00)
[2023-05-05] MEDS ORDERED: Medication Not On Formulary EA (Rosuvastatin Calcium 40 MG) PO SCH (09:00)
[2023-05-05] MEDS ORDERED: Medication Not On Formulary EA (Chlorthalidone 25 MG) PO SCH (09:00)
[2023-05-05 11:32] LABS: ABG OXYGEN SATURATION 98.9 % (92.0-98.5); ABG PCO2 25.8 mmHg (35.0-45.0); ABG PO2 228.1 mmHg (75.0-100.0); ABG TOTAL HEMOGLOBIN 11.5 G/dL (12.0-16.0); AaDO2 451.9 mmHg; COHb 0.1 % (0.5-1.5); MetHb 0.1 % (0.0-1.5); O2Hb 98.7 % (94.0-97.0); SITE, ABG Right Femoral; VENT MODE, BG NON REBREATHER
[2023-05-05] MEDS ORDERED: SODIUM BICARBONATE SYR 50 MEQ/50 ML DISP.SYRIN IV ONE ×3 (12:30→18:58)
[2023-05-05] MEDS: PHENYLEPHRINE 50 MG in IV NS 0.9% 245 ML IV PRN ×2 (12:57→20:00)
[2023-05-05] MEDS ORDERED: Sodium Bicarbonate 150 MEQ in IV D5W 1,000 ML IV SCH (13:00)
[2023-05-05] MEDS ORDERED: MEROPENEM 1 G in IV NS 0.9% 100 ML IV SCH (14:00)
[2023-05-05] MEDS ORDERED: IV NS 0.9% 250 ML IV PRN (14:30)
[2023-05-05 14:39] LABS: BASOPHILS % (AUTO) 0.1 % (0.0-2.0); EOSINOPHILS % (AUTO) 0.2 % (0.0-6.0); HEMATOCRIT 28 % (33-45); HEMOGLOBIN 8.9 g/dL (11.5-14.8); LYMPHOCYTES # (AUTO) 0.3 K/uL (0.8-4.8); MEAN CORPUSCULAR HEMOGLOBIN 26 PG (26.0-33.0); MEAN CORPUSCULAR HGB CONC 32 g/dl (31.0-36.0); MEAN CORPUSCULAR VOLUME 81 fL (82-100); MONOCYTES # (AUTO) 0.2 K/uL (0.1-1.30); MONOCYTES % (AUTO) 4.3 % (2.0-12.0); NEUTROPHILS # (AUTO) 3.1 K/uL (1.8-8.9); NEUTROPHILS % (AUTO) 87.4 % (43.0-81.0); PLATELET COUNT (AUTO) 150 K/uL (150-450); RED BLOOD CELL COUNT(AUTO) 3.42 MIL/uL (4.0-5.2); RED CELL DISTRIBUTION WIDTH 17.7 % (11.5-15.0); WHITE BLOOD COUNT (AUTO) 3.5 K/uL (4.3-11.0)
[2023-05-05 14:54] LABS: ALANINE AMINOTRANSFERASE 57 U/L (12-78); ALBUMIN 2.1 g/dL (3.4-5.0); ALKALINE PHOSPHATASE 78 U/L (46-116); ASPARTATE AMINOTRANSFERASE 159 U/L (15-37); BILIRUBIN,TOTAL 0.9 mg/dL (0.2-1.0); CALCIUM, SERUM 7.7 mg/dL (8.5-10.1); CARBON DIOXIDE 14 mmol/L (21-32); CHLORIDE 98 mmol/L (98-107); CREATININE 3.8 mg/dL (0.6-1.3); GLUCOSE 104 mg/dL (74-106); SODIUM SERUM 136 mmol/L (136-145); TOTAL PROTEIN, SERUM 4.9 g/dL (6.4-8.2); UREA NITROGEN, BLOOD 68 mg/dL (7-18)
[2023-05-05 14:55] LABS: ABG BASE EXCESS -18.7 mmol/L; ABG OXYGEN SATURATION 84.5 % (92.0-98.5); ABG PCO2 65.4 mmHg (35.0-45.0); ABG PH 6.916 (7.350-7.450); ABG PO2 74.1 mmHg (75.0-100.0); ABG TOTAL HEMOGLOBIN 7.9 G/dL (12.0-16.0); COHb 0.3 % (0.5-1.5); MetHb 0.3 % (0.0-1.5); SITE, ABG Other; VENT MODE, BG BIPAP 20/5 R16 100%
[2023-05-05 14:58] LABS: POTASSIUM 7.4 mmol/L (3.5-5.1)
[2023-05-05] MEDS ORDERED: VANCOMYCIN HCL 1 GM in IV D5W 260 ML IV SCH (15:00)
[2023-05-05] MEDS ORDERED: DEXTROSE 50%-WATER 50 ML DISP.SYRIN IVP ONE ×2 (15:00)
[2023-05-05 15:01] LABS: LACTIC ACID 11.1 mmol/L (0.4-2.0)
[2023-05-05] MEDS ORDERED: CALCIUM CHLORIDE 1,000 MG/10 ML DISP.SYRIN ONE (15:21)
[2023-05-05] MEDS ORDERED: CALCIUM CHLORIDE 1,000 MG/10 ML DISP.SYRIN IV ONE ×3 (15:30→18:58)
[2023-05-05] MEDS ORDERED: Sodium Bicarbonate 150 MEQ in IV 10% DEXTROSE 1,000 ML IV SCH (15:30)
[2023-05-05] MEDS ORDERED: ETOMIDATE 2 MG/ML VIAL IV ONE (16:56)
[2023-05-05] MEDS ORDERED: ROCURONIUM BROMIDE 50 MG/5 ML IV ONE (16:56)
[2023-05-05] MEDS ORDERED: NOREPINEPHRINE 32 MG in IV NS 0.9% 218 ML IV PRN (17:00)
[2023-05-05 17:08] LABS: ABG BASE EXCESS -27.1 mmol/L; ABG PCO2 31.1 mmHg (35.0-45.0); ABG PH 6.878 (7.350-7.450); ABG PO2 57.4 mmHg (75.0-100.0); SITE, ABG Other
[2023-05-05 17:08] LABS: BAND % (MANUAL) 20 % (0.0-5.0); LYMPHOCYTES % (MANUAL) 16 % (16-48); METAMYELOCYTES % 6 % (0-0); MONOCYTES % (MANUAL) 8 % (0-11.0); NEUTROPHILS % (MANUAL) 50 (42-76)
[2023-05-05 17:10] LABS: ANISOCYTOSIS 1+; PLATELET ESTIMATE ADEQUATE
[2023-05-05] MEDS ORDERED: EPINEPHRINE (1:10,000) SYRINGE 1 MG/10 ML DISP.SYRIN IVP ONE (18:59)
== END 2023-05-05 20:30 | DRG 393 ==
LOC: ER 00:53 → MEDSG1 07:38 → ICU 11:48
PROC: 5A1935Z Respiratory Ventilation, Less than 24 Consecutive Hours (ICD-10-PCS; principal; 2023-05-05)
PROC: 0BH17EZ Insertion of Endotracheal Airway into Trachea, Via Natural or Artificial Opening (ICD-10-PCS; 2023-05-05)
PROC: 02HV33Z Insertion of Infusion Device into Superior Vena Cava, Percutaneous Approach (ICD-10-PCS; 2023-05-05)
PROC: B548ZZA Ultrasonography of Superior Vena Cava, Guidance (ICD-10-PCS; 2023-05-05)
PROC: 5A12012 Performance of Cardiac Output, Single, Manual (ICD-10-PCS; 2023-05-05)
DX: K55.9 Vascular disorder of intestine, unspecified (principal); J96.01 Acute respiratory failure with hypoxia; J96.02 Acute respiratory failure with hypercapnia; N17.0 Acute kidney failure with tubular necrosis; D68.59 Other primary thrombophilia; E87.20 Acidosis, unspecified; K56.600 Partial intestinal obstruction, unspecified as to cause; E78.5 Hyperlipidemia, unspecified; N18.9 Chronic kidney disease, unspecified; I12.9 Hypertensive chronic kidney disease with stage 1 through stage 4 chronic kidney disease, or unspecified chronic kidney disease; I48.91 Unspecified atrial fibrillation; Z85.07 Personal history of malignant neoplasm of pancreas; Z90.411 Acquired partial absence of pancreas; E03.9 Hypothyroidism, unspecified; Z79.899 Other long term (current) drug therapy; Z79.890 Hormone replacement therapy; D64.9 Anemia, unspecified; E87.5 Hyperkalemia; J44.9 Chronic obstructive pulmonary disease, unspecified; Z66 Do not resuscitate
CPT/HCPCS: 36415; 36600; 71045-TC; 80048-TC; 80053-TC; 80076-TC; 82803-TC; 82962-TC; 83605-TC; 83690-TC; 85025-TC; 92950-TC; 94002-TC; 94799-TC; A4223; A6403; G0378; J0171; J1170; J2185; J2270; J2370; J3490; J7030; J7050; J7060; J7070; Q9967